=== PATIENT | female | born 1970 | race Caucasian/White ===

== ENCOUNTER 2022-10-11 07:29 | Day surgery (SDC) | payer OTHER, MEDICAID, SELFPAY ==
[2022-10-11] MEDS: LACTATED RINGERS 1000 ML 1,000 ML 100 ML IV ×2 (07:30→09:58)
[2022-10-11 07:48] VITALS: BMI 25.4
[2022-10-11 07:54] LABS: Hemoglobin* 14.1 gm/dL (12.0-16.0)
[2022-10-11 07:55] LABS: Ur HCG Qualitative* Negative (Negative)
[2022-10-11 07:58] VITALS: BP 148/95; PULSE 95; RESP 16; TEMP 36.7; O2SAT 98
--- NOTE | 2022-10-11 08:42 | W.ANESCHARGE ---
Anesthesia Charges Start Date/Time Anesthesia Start Date: 10/11/22 Anesthesia Start Time: 09:08 Stop Date/Time Anesthesia Stop Date: 10/11/22 Anesthesia Stop Time: 10:15
[2022-10-11] MEDS: SILVER NITRATE APPLICATOR 1 EACH STICK..EA. TOPICAL (10:00)
[2022-10-11 10:15] VITALS: BP 106/70; PULSE 84; RESP 16; TEMP 36.3; O2SAT 99
--- NOTE | 2022-10-11 10:18 | W.ANESCHARGE ---
Anesthesia Charges Start Date/Time Anesthesia Start Date: 10/11/22 Anesthesia Start Time: 09:08 Stop Date/Time Anesthesia Stop Date: 10/11/22 Anesthesia Stop Time: 10:15
[2022-10-11 10:29] VITALS: BP 117/72; PULSE 77; RESP 16; O2SAT 99
--- NOTE | 2022-10-11 10:32 | PM.GYNPRHA ---
Procedure Pre-op/Post-op diagnoses: Pre-Op/Post-Op Diagnoses Operation Date: 10/11/22 08:55 <No data on this case meets the specified criteria> Procedure: Procedures Operation Date: 10/11/22 08:55 Actual Procedure Side Surgeon p Hysteroscopy, Endometrial Ablation Not Applicable Sarah Garner MD Anesthesia type: MAC Specimen: endometrial curettings Complications: none Disposition: PACU Narrative: Preoperative diagnosis: Mary is a 52 yo with abnormal uterine bleeding - menorrhagia. Postoperative diagnosis: Same. Procedure: Hysteroscopy, dilation and curettage, endometrial ablation. Anesthesia: Mac and paracervical block. Surgeon: Sarah Garner MD Assist: None Estimated blood loss: <5 mL Specimen: Endometrial curettings, sent to path. UPT: negative Endometrial biopsy: Minute fragments of benign endometrial polyp(s), late proliferative/early secretory endometrium. Negative for atypia and malignancy. Findings: On exam under anesthesia: The cervix and vagina appear normal. Vaginal biopsy site at right labia minora is well healed. Improvement in lichen sclerosis already noted. The uterus was anterior position, approximately 6 week size, mobile and without masses or nodularity palpable. Adnexa were without mass or fullness palpable bilaterally. On hysteroscopy: normal endometrium and uterine contour. Bilateral ostia visualized and symmetrical. Despite endometrial biopsy report of possible polyp(s), there was not obvious polyp visualized on hysteroscopy. No other abnormalities noted. The uterus sounded to 8 cm. Cervical length 4 cm. Cavity length: 4 cm. Procedure: Mary was taken to the operating room where conscious sedation was found to be adequate. She was placed in a dorsal lithotomy position and an exam under anesthesia was performed with the findings stated above. She was then prepped and draped in a normal sterile manner. An a bivalve is sterile speculum was placed in the vaginal canal. A paracervical block was placed using 1% lidocaine with epinephrine: 5 mL were injected at the 4 and 8 o'clock positions on the cervix. A tenaculum was placed on the anterior lip of the cervix. The cervix was then dilated to Hegar 6. Uterus sounded to 8 cm. The cervix measured 4 cm. There for the cavity length was 4 cm. The Truclear hysteroscope was advanced into the uterus. A diagnostic hysteroscopy performed with normal saline as the insufflation medium. Findings are stated above. The Truclear incisor was then advanced into the camera. And the curettage performed with this incisor. The curettage took approximately 1 min. The cavity appeared normal once the curettage was performed completed. The hysteroscope was removed. The cervix was then dilated to Hegar 8. The Shirin device was advanced into the uterus. The cavity check was completed and the ablation took place over 2 min. Patient received 30 mg of Toradol IV. The Shirin was removed, the hysteroscope readvanced to document ablation of the entire cavity. The hysteroscope was then removed. The tenaculum was removed from the anterior lip of the cervix. Silver nitrate was used to obtain hemostasis. The speculum was removed. The patient tolerated this procedure well. Sponge, lap and instrument counts were correct x2 at the end of the procedure and the patient was taken to the recovery area in stable condition.
[2022-10-11 10:44] VITALS: BP 119/70; PULSE 72; RESP 16; O2SAT 100
== END 2022-10-11 11:06 | disposition home or self-care (01) ==
PROVIDERS: PCP Physician Assistant Medical; Visit Provider Obstetrics & Gynecology
PROC: 0UF98ZZ Fragmentation in Uterus, Via Natural or Artificial Opening Endoscopic (ICD-10-PCS; CPT 58563; principal; 2022-10-11 08:45)
DX: N92.0 Excessive and frequent menstruation with regular cycle (principal); N84.0 Polyp of corpus uteri
CPT/HCPCS: 58563; 00952; 36415; 81025; 85018; 88305; A9270; J1100; J1885; J2250; J2405; J2704; J3010; J7120

== ENCOUNTER 2024-01-03 07:51 | Outpatient (CLI) | payer BC, MEDICAID, SELFPAY ==
--- OUTSIDE RECORDS SUMMARY | 2024-01-03 07:55 | XMS_ITS | Clinical Summary ---
Author Organization [employer] [facility] Address [place], [place] [address] Care Team Providers Care Roller Checker Name Role Phone Cata Cadena Primary Care Provider Allergies No known active allergies Medications Medication Sig Dispensed Refills Start Date End Date Status multivitamin (MVI) tablet Take 1 Tablet by mouth once daily. 0 12/24/2022 Active lisinopriL (PRINIVIL; ZESTRIL) 30 mg tabletIndications :HTN (hypertension) Take 1 Tablet (30 mg) by mouth once daily. 90 Tablet 3 01/01/2024 Active lisinopriL (PRINIVIL; ZESTRIL) 30 mg tabletIndications :HTN (hypertension) Take 1 Tablet (30 mg) by mouth once daily. 90 Tablet 3 12/24/2022 4 Discontinue d(Reorder (E-cancel not sent)) polyethylene glycol-electrolyt e (GOLYTELY) 236-22.74-6.74 -5.86 gram suspensionIndicat ions:Encounter for screening colonoscopy Drink 2 liters (half the bottle) the day before colonoscopy and 2 liters (remaining prep) 6 hours prior to colonoscopy appointment. 4000 mL 10/01/2023 4 Discontinue d(*Patient states no longer taking) lisinopriL (PRINIVIL; ZESTRIL) 30 mg tabletIndications :HTN (hypertension) Take 1 Tablet (30 mg) by mouth once daily. 90 Tablet 12/16/2023 4 Discontinue d(Reorder (E-cancel not sent)) Hospital, Clinic, or Other Facility Administered Medication Ordered Dose Route Frequency Start Date End Date Status fentaNYL (PF) (SUBLIMAZE) 50 mcg/mL injection 200 mcgIndications:History of colon polyps 200 mcg IV ONE TIME 12/17/2023 12/17/2023 Ended midazolam (VERSED) injection 4 mgIndications:History of colon polyps 4 mg IV ONE TIME 12/17/2023 12/17/2023 Ended Active Problems Problem Noted Date Diagnosed Date Adenocarcinoma, colon 12/19/2023 Overview: Colonoscopy 12/2023 rectosigmoid tumor, refer to surgery Adenomatous colon polyp 11/11/2020 Overview: Colonoscopy 10/2020 5 polyps, repeat in 3 years 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/13/2016 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 Osteoarthritis of left hip 07/26/2014 Resolved Problems Problem Noted Date Diagnosed Date Resolved Date Left hip pain 07/23/2014 07/26/2014 Trochanteric bursitis of left hip 07/23/2014 05/11/2016 Encounters Date Type Department Care Team Description 01/02/2024 8:15 AM CDT Ancillary Procedure [facility] [address] [place] [address] Arrived 01/02/2024 Travel 01/01/2024 7:50 AM CDT Office Visit [address] [address] Cata Cadena PA Physical (53 years old) 12/31/2023 1:30 PM CDT Office Visit [facility] [address] [place] [address] Gris Squires MD Consult (Malignant neoplasm of colon referred by Dr. Mena) 12/31/2023 Travel 12/27/2023 9:20 AM CDT Ancillary Procedure [facility] [address] [place] [address] 12/26/2023 7:30 AM CDT Ancillary Procedure [facility] [address] [place] [address] 12/26/2023 Travel 12/20/2023 8:30 AM CDT Orders Only [address] [place] [address] Lab, [facility] 12/20/2023 Travel 12/19/2023 Telephone [facility] [address] [place] [address] Donavon Mena MD Results 12/17/2023 10:30 AM CDT Office Visit [facility] [address] [place] [address] Donavon Mena MD Procedure (Colonoscopy) 12/17/2023 Travel 12/11/2023 Telephone [facility] [address] [facility] [address] Donavon Mena MD Appointment Reminder (Colonoscopy 12/17/23) from Last 3 Months Immunizations Name Administration Dates Next Due COVID-19 vaccine (State 30mcg/0.3mL) P F, MDV 08/27/2020,08/06/2020 Influenza, IIV4 05/16/2020 Influenza,CCIIV4 PRESERV FREE 05/05/2022 Td (Age >=7 Years) 01/20/2003,07/04/1995 Tdap 08/10/2016,11/18/2012 Zoster (Shingrix-RZV, recombinant) 10/06/2022, Family History Medical History Relation Name Comments Esophageal cancer Father Heart attack Father Hyperlipidemia Father htn Hypertension Father Heart Disease Maternal Grandfather deceas ed in 50s from [place] Thyroid Disease Maternal Grandmother Hypertension Mother Cancer-colon Paternal Grandmother diagnos ed in 40s or 50s Cancer-breast No Family History Relation Name Status Comments Father Maternal Grandfather Maternal Grandmother Mother Alive Paternal Grandmother (Age 108) Social History Tobacco Use Types Packs/Day Years Used Date Smoking Tobacco: Never Smokeless Tobacco: Never Tobacco Cessation:Counseling Given: Yes Alcohol Use Standard Drinks/Week Comments Yes 0 (1 standard drink = 0.6 oz pur e alcohol) moderation PHQ-2 Answer Date Recorded PHQ-2 TOTAL SCORE 0 10/19/2020 Social Connections Answer Date Recorded Frequency of Communication with Friends and Fami ly 0 01/01/2024 Financial Resource Strain Answer Date R ecorded Difficulty of Paying Living Expenses 3 01/01/2024 Difficulty of Paying Living Expenses Not on file 01/01/2024 Food Insecurity Answer Date Recorded Worried About Running Out of Food in the Last Ye ar 1 01/01/2024 Transportation Needs Answer Date Record ed Lack of Transportation (Medical) 1 01/01/2024 Housing Stability Answer Date Recorded Unable to Pay for Housing in the Last Year 1 01/01/2024 Sex and Gender Information Value Date Recorded Sex Assigned at Not on file Gender Identity Not on file Sexual Orientation Not on file Obstetrics History Last Filed Vital Signs Vital Sign Reading Time Taken Comments Blood Pressure 134/84 01/01/2024 8:49 AM CDT Pulse 82 01/01/2024 7:57 AM CDT Temperature 37.6 ??C (99.6 ??F) 05/16/2021 8:33 AM CD T Respiratory Rate 14 12/17/2023 12:05 PM CDT Oxygen Saturation 100% 12/31/2023 1:28 PM CDT Inhaled Oxygen Concentration - - Weight 72.6 kg (160 lb) 01/01/2024 7:57 AM CDT Height 173 cm (5' 8.11) 01/01/2024 7:57 AM CDT Body Mass Index 24.25 01/01/2024 7:57 AM CDT Plan of Treatment Health Maintenance Due Date Last Done Comments Pneumococcal series for age 6-64 (1 of 2 - PCV) 1974 HIV for age 15-65 1983 Hepatitis C screening for ag e 18-79 1986 Depression screening for age 12+ 10/19/2021 10/20/19 21 COVID-19 vaccine series (2022- season) 2023 05/05/2022, 10/28/2021, 04/08/2021, Additional history exists Influenza for age 50-64 03/15/2024 05/05/2022, 05/16 Colonoscopy through age 75 12/16/202412/16, 12/17/2023, 12/17/2023, Additional history exists Mammogram for age 45-75 12/26/2024 12/27/19 24, 12/24/2022, 12/19/2021, Additional history exists BMI (ht and wt on same day) for age 18+ 12/31/2024 01/01/2024, 12/24/2022, 10/05/2022, Additional history exists Pap test for age 21-65 10/19/2025 , 10/19/2020, 04/15/2009, Additional history exists Tetanus booster 08/10/2026 08/10/2016, 05/0 01/2013, 01/20/2003, Additional history exists Lipids for age 45-75 12/19/2028 12/20/2023, 12/24/2022, 12/19/2021, Additional history exists Tdap Completed 08/10/2016, 11/18/2012 Zoster (shingles) series for age 50+ Completed 10/06/2022, 06/03/2022 Procedures Procedure Name Priority Date/Time Associated Diagnosis Comments MR PELVIS RECTUM WWO SUNDEEP 01/02/2024 10:16 AM CDT Rectal cancer (HC) XR MAMMO BILAT SCREENING Routine 12/27/2023 9:26 AM CDT Visit for screening mammogram CT CHEST ABDOMEN PELVIS W Routine 12/26/2023 8:09 AM CDT Malignant neoplasm of colon, unspecified part of colon (HC) BASIC METABOLIC PANEL Add On 12/20/2023 8:31 AM CDT HTN (hypertension) LIPID PANEL W REFLEX MEASURED LDL Add On 12/20/2023 8:31 AM CDT Screening cholesterol level CBC WITH AUTO DIFFERENTIAL Routine 12/20/2023 8:31 AM CDT Malignant neoplasm of colon, unspecified part of colon (HC) CEA Routine 12/20/2023 8:31 AM CDT Malignant neoplasm of colon, unspecified part of colon (HC) CBC WITH AUTO DIFFERENTIAL Routine 12/20/2023 8:31 AM CDT Malignant neoplasm of colon, unspecified part of colon (HC) COMP METABOLIC PANEL Routine 12/20/2023 8:31 AM CDT Malignant neoplasm of colon, unspecified part of colon (HC) PATH TISSUE EXAM Routine 12/17/2023 11:2 3 AM CDT History of colon polyps Polyp of colon, unspecified part of colon, unspecified type COLONOSCOPY 12/17/2023 10:30 AM CDT COLONOSCOPY SCREENING Routine 12/17/2023 10:26 AM CDT History of colon polyps SH[employer]ER [employer] T[employer]ER THIN PREP PAP SCREEN IMAGED Routine 10/19/2020 8:55 AM CDT Pap smear for cervical cancer screening from Last 3 Months or Most Recently Relevant to Health Maintenance Results * MR PELVIS RECTUM WWO (01/02/2024 10:16 AM CDT) Anatomical Region Laterality Modality Pelvis Magnetic Resonan ce 01/02/2024 11:4 6 AM CDT Narrative 01/02/2024 11:46 AM CDT For Patients: ??As a result of the Cures Act, medical imaging exams and procedure reports are released immediately into your electronic medical record. ??You may view this report before your referring provider. ??If you have questions, please contact your health care provider. INDICATION: Rectal cancer. TECHNIQUE: Rectal MRI with T1, T2, and postcontrast images. Intravenous gadolinium administered. COMPARISON: CT scan of the chest, abdomen, and pelvis dated 26 December 2023. Findings : No discrete rectal mass identified. No mesorectal adenopathy. No pelvic masses or adenopathy. Bilateral hip arthroplasties cause metallic susceptibility artifact. No other bony or soft tissue abnormalities identified. Impression : 1. No discrete rectal mass identified. No mesorectal adenopathy. Dictated by Ryan Arnold MD @ 01/02/2024 11:46:21 AM (Electronically Signed) Procedure Note Ryan Arnold MD - 01/02/2024 For Patients: As a result of the Cures Act, medical imagingexams and procedure reports are released immediately into your electronicmedical record. You may view this report before your referring provider.If you have questions, please contact your health care provider. INDICATION: Rectal cancer. TECHNIQUE: Rectal MRI with T1, T2, and postcontrast images. Intravenous gadoliniumadministered. COMPARISON: CT scan of the chest, abdomen, and pelvis dated 26 December 2023. Findings : No discrete rectal mass identified. No mesorectal adenopathy. No pelvic masses or adenopathy. Bilateral hip arthroplasties cause metallic susceptibility artifact. No other bony or soft tissue abnormalities identified. Impression : 1. No discrete rectal mass identified. No mesorectal adenopathy. Dictated by Ryan Arnold MD @ 01/02/2024 11:46:21 AM (Electronically Signed) Gris Squires MD MR * XR MAMMO BILAT SCREENING (12/27/2023 9:26 AM CDT) Anatomical Region Laterality Modality BREASTS, Breast Left, Breast Right Bilateral Mammography Impressions 12/27/2023 11:12 AM CDT ??There is no radiographic evidence for malignancy. ??Recommend annual mammograms. MAMMOGRAM ASSESSMENT: ??ACR 1 Negative PATIENTS: You will also receive a letter with your examination results in an easy to read format. ??If you have questions about your results, please contact your referring provider. Narrative 12/27/2023 11:12 AM CDT For Patients: As a result of the 21st Century Cures Act, medical imaging exams and procedure reports are released immediately into your electronic medical record. You may view this report before your referring provider. If you have questions, please contact your health care provider. XR MAMMO BILAT SCREENING [[id number]] CLINICAL HISTORY: ??This is an asymptomatic 53 y.o. patient. INDICATION FOR EXAM: Mammogram Screening. TECHNIQUE: CC & MLO views were obtained. ??This study was evaluated with the assistance of Computer-Aided Detection. COMPARISON FILM: Yes 12/24/22 Synapse 12/19/21 Synapse FINDINGS: ??There are scattered areas of fibroglandular density. There are no dominant masses, suspicious micro calcifications or areas of architectural distortion. Cata FISHMAN MAMMO * CT CHEST ABDOMEN PELVIS W (12/26/2023 8:09 AM CDT) Anatomical Region Laterality Modality Abdomen, Pelvis, AORTA, LIVER, SPLEEN, CHEST Computed Tomography 12/27/2023 12:3 6 PM CDT Narrative 12/27/2023 12:36 PM CDT For Patients: ??As a result of the Cures Act, medical imaging exams and procedure reports are released immediately into your electronic medical record. ??You may view this report before your referring provider. ??If you have questions, please contact your health care provider. Indication: Malignant neoplasm of colon Technique: CT chest/abdomen/pelvis with IV contrast, 100 mL Omnipaque 350 Comparison: None Findings: Chest: No thyroid nodules. No pathologically enlarged lymph nodes throughout the thorax. The heart is normal in size. No pericardial effusion. No coronary artery calcifications. The thoracic aorta and pulmonary artery are within normal limits in caliber. No appreciable pulmonary embolism. Minimal biapical pleural/parenchymal scarring. No focal airspace consolidation, pleural effusion, or pneumothorax. No suspicious pulmonary nodules or masses. Small calcified granuloma in the left lower lobe. The airways are clear. Abdomen/pelvis: The liver, gallbladder and biliary system, spleen, pancreas, adrenal glands, kidneys, and visualized portions of the distal ureters and bladder are unremarkable. There is a tiny splenule along the inferior margin of the spleen. Beam hardening artifact from bilateral total hip arthroplasties limits evaluation of the pelvis. The uterus appears within normal limits. There is a well- circumscribed fat and soft tissue density lesion in the left adnexa, in close proximity to the left ovary, that measures approximately 4.4 Centimeters AP by 3.9 centimeters transverse by 3.7 centimeters craniocaudal. The ovaries appear within normal limits with some benign calcifications. There is no evidence of bowel obstruction or inflammation. The appendix is normal. Scattered colonic diverticula without CT evidence of acute diverticulitis. No clearly identifiable colonic mass. There is some questionable wall thickening seen in the distal sigmoid colon, indeterminate No free fluid or free air. No abscess. No pathologically enlarged lymph nodes throughout the abdomen or pelvis. The vasculature is within normal limits. There are multiple pelvic phleboliths. Soft tissue/musculoskeletal: Small fat containing umbilical hernia. The osseous structures are without acute fracture or malalignment. There are some degenerative changes of the visualized cervical spine and lower lumbar spine. There are no suspicious osseous lesions. Postsurgical changes of bilateral total hip arthroplasties. Impression: 1. No definitive CT evidence of a colonic mass or lesion on this exam. 2. There are no pathologically enlarged lymph nodes throughout the chest, abdomen, or pelvis to suggest metastatic disease. 3. There is a well-circumscribed fat and soft tissue density lesion seen in the left adnexa measuring 4.4 x 3.9 x 3.7 centimeters with imaging findings suggestive of an ovarian dermoid tumor, to correlate with prior imaging if available. Please note that all CT scans at this facility use dose modulation, iterative reconstruction, and/or weight-based dosing when appropriate to reduce radiation dose to as low as reasonably achievable. Dictated by Bishnu Valerio MD @ 12/27/2023 12:36:50 PM (Electronically Signed) Procedure Note Bishnu Valerio MD - 12/27/2023 For Patients: As a result of the Cures Act, medical imagingexams and procedure reports are released immediately into your electronicmedical record. You may view this report before your referring provider.If you have questions, please contact your health care provider. Indication: Malignant neoplasm of colon Technique: CT chest/abdomen/pelvis with IV contrast, 100 mL Omnipaque 350 Comparison: None Findings: Chest: No thyroid nodules. No pathologically enlarged lymph nodes throughout the thorax. The heart is normal in size. No pericardial effusion. No coronary arterycalcifications. The thoracic aorta and pulmonary artery are within normallimits in caliber. No appreciable pulmonary embolism. Minimal biapical pleural/parenchymal scarring. No focal airspaceconsolidation, pleural effusion, or pneumothorax. No suspicious pulmonarynodules or masses. Small calcified granuloma in the left lower lobe. Theairways are clear. Abdomen/pelvis: The liver, gallbladder and biliary system, spleen, pancreas, adrenalglands, kidneys, and visualized portions of the distal ureters and bladderare unremarkable. There is a tiny splenule along the inferior margin ofthe spleen. Beam hardening artifact from bilateral total hip arthroplasties limitsevaluation of the pelvis. The uterus appears within normal limits. Thereis a well- circumscribed fat and soft tissue density lesion in the leftadnexa, in close proximity to the left ovary, that measures approximately4.4 Centimeters AP by 3.9 centimeters transverse by 3.7 centimeterscraniocaudal. The ovaries appear within normal limits with some benigncalcifications. There is no evidence of bowel obstruction or inflammation. The appendix isnormal. Scattered colonic diverticula without CT evidence of acutediverticulitis. No clearly identifiable colonic mass. There is somequestionable wall thickening seen in the distal sigmoid colon,indeterminate No free fluid or free air. No abscess. No pathologically enlarged lymphnodes throughout the abdomen or pelvis. The vasculature is within normal limits. There are multiple pelvicphleboliths. Soft tissue/musculoskeletal: Small fat containing umbilical hernia. The osseous structures are withoutacute fracture or malalignment. There are some degenerative changes of thevisualized cervical spine and lower lumbar spine. There are no suspiciousosseous lesions. Postsurgical changes of bilateral total hiparthroplasties. Impression: 1. No definitive CT evidence of a colonic mass or lesion on this exam. 2. There are no pathologically enlarged lymph nodes throughout the chest,abdomen, or pelvis to suggest metastatic disease. 3. There is a well-circumscribed fat and soft tissue density lesion seenin the left adnexa measuring 4.4 x 3.9 x 3.7 centimeters with imagingfindings suggestive of an ovarian dermoid tumor, to correlate with priorimaging if available. Please note that all CT scans at this facility use dose modulation,iterative reconstruction, and/or weight-based dosing when appropriate toreduce radiation dose to as low as reasonably achievable. Dictated by Bishnu Valerio MD @ 12/27/2023 12:36:50 PM (Electronically Signed) Donavon Mena MD CT * (ABNORMAL) CBC WITH AUTO DIFFERENTIAL (12/20/2023 8:31 AM CDT) WHITE BLOOD COUNT 5.1 4.5 - 11.0 thou/cu mm 12/20/2023 8:41 AM CDT [facility] RED BLOOD COUNT 4.28 4.00 - 5.20 mil/cu mm 12/20/2023 8:41 AM CDT [facility] HEMOGLOBIN 13.6 12.0 - 16.0 g/dL 12/20/2023 8:41 AM CDT [facility] HEMATOCRIT 39.5 33.0 - 51.0 % 12/20/2023 8:41 AM CDT [facility] MCV 92 80 - 100 fL 12/20/2023 8:41 AM CDT [facility] MCH 31.8 26.0 - 34.0 pg 12/20/2023 8:41 AM CDT [facility] MCHC 34.4 32.0 - 36.0 g/dL 12/20/2023 8:41 AM CDT [facility] RDW 13.2 11.5 - 15.5 % 12/20/2023 8:41 AM CDT [facility] PLATELET COUNT 296 140 - 440 thou/cu mm 12/20/2023 8:41 AM CDT [facility] MPV 9.0 6.5 - 11.0 fL 12/20/2023 8:41 AM CDT [facility] % NEUT 32.1 % 12/20/2023 8:41 AM CDT [facility] % LYMPH 55.8 % 12/20/2023 8:41 AM CDT [facility] % MONO 8.8 % 12/20/2023 8:41 AM CDT [facility] % EOS 2.7 % 12/20/2023 8:41 AM CDT [facility] % BASO 0.6 % 12/20/2023 8:41 AM CDT [facility] ABSOLUTE NEUTROPHILS 1.6(L) 1.7 - 7.0 thou/cu mm 12/20/2023 8:41 AM CDT [facility] ABSOLUTE LYMPHOCYTES 2.9 0.9 - 2.9 thou/cu mm 12/20/2023 8:41 AM CDT [facility] ABSOLUTE MONOCYTES 0.5 <0.9 thou/cu mm 12/20/2023 8:41 AM CDT [facility] ABSOLUTE EOSINOPHILS 0.1 <0.5 thou/cu mm 12/20/2023 8:41 AM CDT [facility] ABSOLUTE BASOPHILS 0.0 <0.3 thou/cu mm 12/20/2023 8:41 AM CDT [facility] Blood BLOOD SPECIMEN / Unknown Venipuncture / Unknown 12/20/2023 8:31 AM CDT 12/20/2023 8:31 AM CDT Donavon Mena MD HEMATOLOGY [facility] [address] [place] [address], [place] [phone] * (ABNORMAL) LIPID PANEL W REFLEX MEASURED LDL (12/20/2023 8:31 AM CDT) CHOLESTEROL,TOTAL 218(H) 100 - 199 mg/dL 12/23/2023 8:17 AM CDT [facility] Comment: Cholesterol, Total Reference Ranges Desirable <200 mg/dL Borderline 200-239 mg/dL High >=240 mg/dL TRIGLYCERIDES 81 <150 mg/dL 12/23/2023 8:17 AM CDT [facility] HDL CHOLESTEROL 68 >40 mg/dL 8:17 AM CDT [facility] NON-HDL CHOLESTEROL 150(H) <145 mg/dl 12/23/2023 8:17 AM CDT [facility] CHOL/HDL RATIO 3.21 <4.50 12/23/2023 8:17 AM CDT [facility] LDL CHOLESTEROL 134(H) <=130 mg/dL 12/23/2023 8:17 AM CDT [facility] VLDL CHOLESTEROL 16 <=30 mg/dL 12/23/2023 8:17 AM CDT [facility] PROVIDER ORDERED STATUS RANDOM 12/23/2023 8:17 AM CDT [facility] Blood BLOOD SPECIMEN / Unknown Venipuncture / Unknown 12/20/2023 8:31 AM CDT 12/20/2023 8:31 AM CDT [facility] [address] [place] [address] * CEA (12/20/2023 8:31 AM CDT) CEA 3.2 ng/mL 12/20/2023 7:43 PM CDT [facility] Blood BLOOD SPECIMEN / Unknown Venipuncture / Unknown 12/20/2023 8:31 AM CDT 12/20/2023 8:31 AM CDT Narrative [facility] - 12/20/2023 7:43 PM CDT ?CEA Ranges Age Range ? Reference Range 20 years up to 70 years (all subjects) ?<4.8 ng/mL 40 years up to 70 years (all subjects) ?<5.3 ng/mL 20 years up to 70 years (non smoker) ?<3.9 ng/mL 40 years up to 70 years (non smoker) ?<5.1 ng/mL 20 years up to 70 years (smoker) ?<5.6 ng/mL 40 years up to 70 years (smoker) ?<6.6 ng/mL The test method changed on 07/17/2022. If this test has been used for serial monitoring, rebaselining is recommended. Rebaselining consists of 2 measurements, collected 3-6 weeks apart. The [employer] CEA assay is an electrochemiluminescence immunoassay ECLIA performed on the [employer] [place] e immunoassy analyzers. ?? Values obtained with different assay methods may be different and cannot be used interchangeably. ? Biotin supplements may cause clinically significant interference for this test assay. If interference is suspected, it is strongly recomended that biotin is discontinued for at least one week prior to retesting. Donavon Mena MD [facility]Y [facility] [address] [place] [address], [place] * COMP METABOLIC PANEL (12/20/2023 8:31 AM CDT) SODIUM 138 136 - 145 mmol/L 12/20/2023 7:43 PM CDT [facility] POTASSIUM 4.3 3.5 - 5.1 mmol/L 12/20/2023 7:43 PM CDT [facility] CHLORIDE 101 98 - 107 mmol/L 12/20/2023 7:43 PM CDT [facility] CO2,TOTAL 26 22 - 29 mmol/L 12/20/2023 7:43 PM CDT [facility] ANION GAP 11 5 - 18 12/20/2023 7:43 PM CDT [facility] GLUCOSE 86 70 - 99 mg/dL 12/20/2023 7:43 PM CDT [facility] CALCIUM 9.9 8.6 - 10.0 mg/dL 12/20/2023 7:43 PM CDT [facility] BUN 7 6 - 20 mg/dL 12/20/2023 7:43 PM T [facility] CREATININE 0.53 0.50 - 0.90 mg/dL 12/20/2023 7:43 PM T [facility] BUN/CREAT RATIO 13 10 - 20 7:43 PM CDT [facility] eGFR >90 >90 mL/min/1.7 3m2 12/20/2023 7:43 PM CDT [facility] Comment:As of 2021, eG FR is calculated by the CKD-EPI creatinine equation without race adjustment. ??eGFR can be influenced by muscle mass, exercise, and diet. ??The reported eGFR is an estimation only and is only applicable if the renal function is stable. ALBUMIN 4.8 4.0 - 4.9 g/dL 12/20/2023 7:43 PM CDT [facility] PROTEIN,TOTAL 7.6 6.0 - 8.0 g/dL 12/20/2023 7:43 PM CDT [facility] BILIRUBIN,TOTAL 0.2 0.0 - 1.2 mg/dL 12/20/2023 7:43 PM CDT [facility] ALK PHOSPHATASE 77 35 - 104 IU/L 12/20/2023 7:43 PM CDT [facility] ALT (SGPT) 30 10 - 35 IU/L 12/20/2023 7:43 PM CDT [facility] AST (SGOT) 33 10 - 35 IU/L 12/20/2023 7:43 PM T [facility] Blood BLOOD SPECIMEN / Unknown Venipuncture / Unknown 12/20/2023 8:31 AM CDT 12/20/2023 8:31 AM CDT Donavon Mena MD CHEMISTRY [facility] [address] [place] [address], * BASIC METABOLIC PANEL (12/20/2023 8:31 AM CDT) SODIUM 138 136 - 145 mmol/L 12/23/2023 7:33 AM CDT [facility] POTASSIUM 4.3 3.5 - 5.1 mmol/L 12/23/2023 7:33 AM CDT [facility] CHLORIDE 101 98 - 107 mmol/L 12/23/2023 7:33 AM CDT [facility] CO2,TOTAL 26 22 - 29 mmol/L 12/23/2023 7:33 AM CDT [facility] ANION GAP 11 5 - 18 12/23/2023 7:33 AM CDT [facility] GLUCOSE 86 70 - 99 mg/dL 12/23/2023 7:33 AM CDT [facility] CALCIUM 9.9 8.6 - 10.0 mg/dL 12/23/2023 7:33 AM CDT [facility] BUN 7 6 - 20 mg/dL 12/23/2023 7:33 AM CDT [facility] CREATININE 0.53 0.50 - 0.90 mg/dL 12/23/2023 7:33 AM CDT [facility] BUN/CREAT RATIO 13 10 - 20 7:33 AM CDT [facility] eGFR >90 >90 mL/min/1.7 3m2 12/23/2023 7:33 AM CDT [facility] Comment: As of 2021, eGFR is calculated by the CKD-EPI creatinine equation without race adjustment. ??eGFR can be influenced by muscle mass, exercise, and diet. ??The reported eGFR is an estimation only and is only applicable if the renal function is stable. As of 09/26/2021, eGFR is calculated by the CKD-EPI creatinine equation without race adjustment. ??eGFR can be influenced by muscle mass, exercise, and diet. ??The reported eGFR is an estimation only and is only applicable if the renal function is stable. Blood BLOOD SPECIMEN / Unknown Venipuncture / Unknown 12/20/2023 8:31 AM CDT 12/20/2023 8:31 AM CDT Cata FISHMAN CHEMISTRY [facility] [address] [place] [address], * PATH TISSUE EXAM (12/17/2023 11:23 AM CDT) Case Report Pathology Report ?Case: [id number] ? Authorizing Provider: ??Trina, Donavon Herron, MD ?? Collected: ? 12/17/2023 1123 ? Ordering Location: ? [facility] ?? Received: ?12/17/2023 1550 ? Clinic ? Pathologist: ? Juwan, Norberto Duque, ? MD ? Specimens: ?? A) - Ascending Colon Polyp ? B) - Sigmoid Polyp, @35 cm ? C) - Sigmoid Polyp, @20 cm ? D) - Rectal-Sigmoid Biopsy, mass ? 4 2:35 PM CDT [facility] Amendment 12/19/2023 - DNA mismatch repair enzyme IHC added, see final diagnosis and synoptic sections. 4 2:35 PM CDT [facility] Final Diagnosis A) COLON, ASCENDING, POLYPECTOMY: 1. Tubular adenoma 2. Negative for high grade dysplasia 3. Per the colonoscopy report: ?? a. Polyp size: 3 mm ?? b. Resection: Complete ?? c. Retrieval: Complete B) COLON, SIGMOID AT 35 CM, POLYPECTOMIES: 1. Tubular adenomas (2) 2. Negative for high grade dysplasia 3. Per the colonoscopy report: ?? a. Polyp sizes: 3 mm - 4 mm ?? b. Resection: Complete ?? c. Retrieval: Complete C) COLON, SIGMOID AT 20 CM, POLYPECTOMY: 1. Tubular adenoma 2. Negative for high grade dysplasia 3. Per the colonoscopy report: ?? a. Polyp size: 4 mm ?? b. Resection: Complete ?? c. Retrieval: Complete D) COLON, RECTOSIGMOID, MASS, BIOPSY: 1. Adenocarcinoma, low grade (moderately differentiated) 2. Background adenoma is not present 3. Please order CEA level and CT imaging (chest/abdomen/pelvis) prior to treatment 4. Ancillary studies: ?? a. DNA mismatch repair enzymes intact by immunohistochemistry ?? b. See comment and synoptic sections 4 2:35 PM CDT [facility] Amendment electronically signed by Norberto Echeverria MD on 12/19/2023 at 2:35 PM Comment D) Dr. Echeverria discussed the case with Dr. Mena on 12/19/2023. This case was seen in consultation with Dr. Ashley. Please contact us with any questions ([facility] GI pathology service [phone]). Formalin-fixed, paraffin-embedded tissue is available for ancillary studies, to request please contact the [facility] ([phone]). Neoplastic tissue available for ancillary studies: ?? [facility] NGS testing: ?- FFPE tissue blocks: D1 ?- Cytology slides: No cytology slides prepared from this specimen ?? Tests using immunostains and/or FISH (requiring 100 cells): D1 ?? Send out (outside vendor) testing requiring 5 x 5 mm of tumor: D1 Ancillary Testing Comment Immunohistochemistry reveals intact nuclear staining for DNA mismatch repair enzymes MLH1, MSH2, MSH6 and PMS2. These results fail to show evidence for defective mismatch repair function or Peguero Syndrome and are approximately 85-90% sensitive for Peguero syndrome. Cancers with this profile are usually microsatellite stable (YUSUF). If Peguero syndrome is strongly suspected clinically please contact us ([facility] GI Pathology Service [phone]). Rarely there can be a functionally significant mutation that leaves the protein intact or other heritable reasons for this finding. 4 2:35 PM T [facility] Clinical Information Ms. Gaytan is a 53 y.o. undergoing high risk colon cancer surveillance due to a personal history of adenomas. Colonoscopy reveals a partially obstructing tumor in the rectosigmoid colon. Additional polyps were identified in the ascending and sigmoid colon. 4 2:35 PM CDT [facility] Gross Description A) Received in formalin are 2 brownlee mucosal fragments ranging from 1 mm to 2 mm in greatest dimension, which are entirely submitted in one cassette. It is labeled with the patient's name and designated A. B) Received in formalin are 3 brownlee mucosal fragments ranging from 2 mm to 7 mm in greatest dimension, which are entirely submitted in one cassette. It is labeled with the patient's name and designated B. C) Received in formalin are 2 brownlee mucosal fragments ranging from 3 mm to 4 mm in greatest dimension, which are entirely submitted in one cassette. It is labeled with the patient's name and designated C. D) Received in formalin are 8 brownlee mucosal fragments ranging from 1 mm to 3 mm in greatest dimension, which are entirely submitted in one cassette. It is labeled with the patient's name and designated D. Renae Mata 12/18/2023 9:10 AM 4 2:35 PM CDT [facility] Microscopic Description The final diagnosis is based on microscopic examination of appropriate sections of all specimens. 4 2:35 PM CDT [facility] SYNOPTIC REPORTING Colon and Rectum Biomarker Reporting Template COLON AND RECTUM: BIOMARKER REPORTING TEMPLATE - All Specimens Protocol posted: 01/11/2021 RESULTS ?? Mismatch Repair: ? Immunohistochemistry (IHC) Testing for Mismatch Repair (MMR) Proteins: ? MLH1 Result: ?Intact nuclear expression ? Immunohistochemistry (IHC) Testing for Mismatch Repair (MMR) Proteins: ? MSH2 Result: ?Intact nuclear expression ? Immunohistochemistry (IHC) Testing for Mismatch Repair (MMR) Proteins: ? MSH6 Result: ?Intact nuclear expression ? Immunohistochemistry (IHC) Testing for Mismatch Repair (MMR) Proteins: ? PMS2 Result: ?Intact nuclear expression ? Immunohistochemistry (IHC) Testing for Mismatch Repair (MMR) Proteins: ?Background nonneoplastic tissue / internal control with intact nuclear expression ? IHC Interpretation: ?No loss of nuclear expression of MMR proteins: low probability of MSI-H 4 2:35 PM CDT [facility] Additional Information Interpreted at [facility] - [address] [facility] [address], [place] [address] 4 2:35 PM CDT [facility] Other (Ascending Colon Polyp) Non-Blood / Unknown 12/17/2023 11:23 AM CDT 12/17/2023 3:50 PM CDT Specimen (specimen) (Sigmoid Polyp) Non-Blood / Unknown 12/17/2023 11:27 AM CDT 12/17/2023 3:50 PM CDT Specimen (specimen) (Sigmoid Polyp) 12/17/2023 11:31 AM CDT 12/17/2023 3:50 PM CDT Specimen (specimen) (Rectal-Sigmoid Biopsy) 12/17/2023 11:35 AM CDT 12/17/2023 3:50 PM CDT Donavon Mena MD PATHOLOGY/CYTOLOG Y [facility] [address] [place] [address], [place] * COLONOSCOPY (12/17/2023 10:30 AM CDT) 12/17/2023 10:3 0 AM CDT Narrative Transcriptions Donavon Mena MD - 12/17/2023 11:50 AM CDT Patient Name: Mary Gaytan Procedure Date: 12/17/2023 Gender: Female Date of : 1970 Admit Type: Outpatient Procedure: Colonoscopy Proceduralist: Donavon Mena MD , Jennifer Cruz (Nurse), Joanie Crane (Nurse) Referring MD: Cata Cadena Indications/Pre-Op Diagnosis: High risk colon cancer surveillance:Personal history of multiple (3 or more) adenomas,High risk colon cancer surveillance: Personal history of adenoma less than 10 mm in size, Last colonoscopy: October 2020 Medications: Fentanyl 200 micrograms IV, Midazolam 4 mgIV Procedure Description: The patient had risks, benefits and alternatives explained to andgave informed consent. The patient had a stable cardiopulmonary status and judged an adequate candidate for conscious sedation. The endoscope PCF-H190L [id number] was passed through the anus andadvanced to the cecum, identified by appendiceal orifice and ileocecal valve.The colonoscopy was performed without difficulty. The patient toleratedthe procedure well. The quality of the bowel preparation was good. The ileocecal valve, appendiceal orifice, and rectum were photographed. Complications: No immediate complications. Estimated Blood Loss & Specimen: Estimated blood loss: none. Specimen collected - Yes and sent to Laboratory Findings: The perianal and digital rectal examinations were normal. A 3 mm polyp was found in the ascending colon. The polyp was sessile. The polyp was removed with a cold biopsy forceps. Resection and retrieval were complete. Two sessile polyps were found in the sigmoid colon. The polyps were 3to 4 mm in size. These polyps were removed with a cold snare. Resectionand retrieval were complete. A 4 mm polyp was found in the distal sigmoid colon. The polyp was semi-pedunculated. The polyp was removed with a cold snare. Resection and retrieval were complete. A polypoid partially obstructing mass was found in the recto-sigmoid colon. The mass was partially circumferential (involving one-third of the lumen circumference). The mass measured three cm in length. In addition, its diameter measured thirty mm. Biopsies were taken with a cold forceps for histology. The exam was otherwise without abnormality. Impressions/Post-Op Diagnosis: - One 3 mm polyp in the ascending colon, removed with a cold biopsy forceps. Resected and retrieved. - Two 3 to 4 mm polyps in the sigmoid colon, removed with a coldsnare. Resected and retrieved. - One 4 mm polyp in the distal sigmoid colon, removed with a coldsnare. Resected and retrieved. - Partially obstructing tumor in the recto-sigmoid colon. Biopsied. - The examination was otherwise normal. Recommendation: - Patient has a contact number available for emergencies. The signsand symptoms of potential delayed complications were discussed with the patient. Return to normal activities tomorrow. Written discharge instructions were provided to the patient. - Resume previous diet. - Continue present medications. - Await pathology results. - Repeat colonoscopy is recommended. The colonoscopy date will be determined after pathology results from today's exam become available for review. - Refer to a colo-rectal surgeon at appointment to be scheduled. Moderate Sedation: A time out was performed before the procedure. Moderate (conscious) sedation was administered by the endoscopy nurse and supervised bythe endoscopist. The following parameters were monitored: oxygensaturation, heart rate, blood pressure, EKG, CO2, respiratory rate, adequacy of pulmonary ventilation and reponse to care. Please refer to the patient's medical record flowsheets and nursing notes for moderate sedation details. Total physician intraservice time was 30 minutes. Donavon Mena MD 12/17/2023 11:50:05 AM This report has been signed electronically. Note Initiated On: 12/17/2023 10:30 AM Procedure Code(s): --- Professional --- 49683, Colonoscopy, flexible; with removalof tumor(s), polyp(s), or other lesion(s) bysnare technique 98852, 59, Colonoscopy, flexible; withbiopsy, single or multiple Diagnosis Code(s): --- Professional --- D12.2, Benign neoplasm of ascending colon D12.5, Benign neoplasm of sigmoid colon D49.0, Neoplasm of unspecified behavior of digestive system K56.690, Other partial intestinalobstruction Z86.010, Personal history of colonicpolyps CPT copyright 2022 [employer]. All rights reserved. The codes documented in this report are preliminary and upon roll shop supervisor reviewmay be revised to meet current compliance requirements. Scope In: 11:09:56 AM Scope Withdrawal Time 0 hours 18 minutes 2 seconds Scope Out: 11:37:51 AM Donavon Mena MD PROCEDURE ORD * SHADER AND TONER THIN PREP PAP SCREEN IMAGED (10/19/2020 8:55 AM CDT) Case Report Gynecologic Cytology Report ? Case: [id number] ? Authorizing Provider: ??Cata Cadena PA Collected: ? 10/19/2020 0855 ? Ordering Location: ? [facility] ?? Received: ?10/19/2020 0958 ? Clinic ? First Screen: ?Dimas Kearns ? Specimen: ?SHADER AND TONER ThinPrep Vial Screening, Cervical ? 10/31/2020 2:39 PM CDT [facility] INTERPRETATION/ RESULT NEGATIVE FOR INTRAEPITHELIAL LESION OR MALIGNANCY (NIL) (none) 10/31/2020 2:39 PM CDT [facility] IMEN ADEQUACY Satisfactory for evaluation No endocervical component seen 10/31/2020 2:39 PM CDT [facility] HPV REQUEST HPV and PAP 10/31/2020 2:39 PM CDT [facility] Date of LMP 10/07/20 10/31/2020 2:39 PM CDT [facility] Last Pap Date 2009 10/31/2020 2:39 PM CDT [facility] Last Pap Result NIL 2:39 PM CDT [facility] Abnormal Pap or [place] Bx in last 5 years No 10/31/2020 2:39 PM CDT [facility] Menstrual Status Regular Periods 10/31/2020 2:39 PM CDT [facility] [place] Bx Done Today No 10/31/2020 2:39 PM CDT [facility] Additional Information None given 10/31/2020 2:39 PM CDT [facility] Comment: Cytology is screened at [facility] - [address], [place] [address] and [facility] - [address] [place] [address] and [facility] - [address] [place] [address] Interpreted at [facility] - [address], [place] [address] Automated Review Successful 10/31/2020 2:39 PM CDT [facility] Comment:Specimen processed s uccessfully by automated maintenance tech device, ThinPrep Imaging System, [employer] ANCILLARY TESTING SHADER AND TONER HPV Ordered, Please see separate report 10/31/2020 2:39 PM CDT [facility] Note The pap test is a screening technique, not a diagnostic procedure. It is used primarily to screen for squamous cancers and precursor lesions. Published studies have shown that it is subject to both false negative and false positive results. The pap test should not be used as the sole means to diagnose or exclude pre-malignant and malignant lesions. 10/31/2020 2:39 PM CDT [facility] Other (Cervical) Non-Blood / Unknown 10/19/2020 8:55 AM CDT 10/19/2020 9:58 AM CDT Cata FISHMAN PATHOLOGY/[facility] [address] [place] [address], from Last 3 Months or Most Recently Relevant to Health Maintenance Care Teams Roller Checker Relationship Specialty Start Date End Date Cata Cadena PA [address] [place] [address] PCP - General Physician Lamp Shade Sewer 10/19/20
--- OUTSIDE RECORDS SUMMARY | 2024-01-03 07:55 | XMS_ITS ---
Author Organization [facility] Address [address] [place] [address] Care Team Providers Care Service Administrator Name Role Phone Unavailable Unavailable Unavailable Surgery Details Not on file Complications Check Surgery Details section. Procedure Estimated Blood Loss Check Surgery Details section. Procedure Findings Check Surgery Details section. Procedure Specimens Taken Check Surgery Details section.
--- OUTSIDE RECORDS SUMMARY | 2024-01-03 07:55 | XMS_ITS | Clinical Summary ---
Author Organization [facility] Address [address] [place] [address] Care Team Providers Care Qm Nurse Name Role Phone Unavailable Primary Care Provider Unavailabl e Source Comments Patient records contain information from all sites at [facility]. For routine questions regarding patient records, call [phone] during business hours, M-F 8:00 AM - 5:00 PM Central Time. Record requests for emergency care only can be directed to [phone] at any time.[facility] Allergies No known active allergies Medications Medication Sig Dispensed Refills Start Date End Date Status lisinopril (PRINIVIL,ZESTRIL) 0.625 mg tablet Take 20 mg by mouth. 04/22/2022 Active multivit with minerals/lutein (MULTIVITAMIN 50 PLUS ORAL) Take 1 tablet by mouth. 04/22/2022 Active lisinopriL (PRINIVIL,ZESTRIL) 30 mg tablet Take 1 tablet by mouth daily. 01/01/2024 Active Encounters Date Type Department Care Team Description 01/02/2024 3:40 PM CDT Ancillary Procedure Department of Radiology in [place], [place] [address] [place] [phone] Kathy Lemus M.D. Malignant Neoplasm Of Rectum (HCC) 01/02/2024 Clinical Communication Division of Gastroenterology in [place], [place] [address] [place] [phone] Kathy Lemus M.D. Neoplasia; Order Request 01/01/2024 11:00 AM CDT Clinical Communication Virtual Review in [place], [place] [address] [place] [phone] 01/01/2024 Clinical Communication Division of Gastroenterology in [place], [place] [address] [place] [phone] Prescheduling, Provider 12/31/2023 Clinical Communication Division of Gastroenterology in [place], [place] [address] [place] [address] Kathy Lemus M.D. Neoplasia; RN Summary 12/31/2023 Clinical Communication Division of Gastroenterology in [place], [place] [address] [place] [phone] Kathy Lemus M.D. gih review (Kathy Lemus 01/06 @8AM ) from Last 3 Months Family History Medical History Relation Name Comments Esophageal cancer Father Colon cancer Paternal Grandfather Two occ urences Relation Name Status Comments Father Maternal Grandfather (Age 50s) d . [place] Paternal Grandfather (Age 100s) Social History Tobacco Use Types Packs/Day Years Used Date Smoking Tobacco: Never Assessed Nutrition Answer Date Recorded Nutrition: EVOO Fat Source Unknown 07/19 Nutrition: Servings of Fruits/Vegetables per Day Not on file 07/19/2023 Dental Answer Date Recorded Dental: Regular Dentist Unknown 07/19/19 Sex and Gender Information Value Date Recorded Sex Assigned at Female 01/01/2024 10:17 AM CDT Gender Identity Female 01/01/2024 10:17 AM CDT Sexual Orientation Straight 01/01/2024 10 :17 AM CDT Plan of Treatment Upcoming Encounters Date Type Department Care Team (Latest Contact Info) Description 01/07/2024 8:00 AM CDT Comprehensive Visit Division of Gastroenterology in [place], [place] [address] [place] [phone] Kathy Lemus M.D. [address] [place] [phone] 01/08/2024 8:00 AM CDT Comprehensive Visit Department of Medical Genetics in [place], [place] [address] [place] [phone] Kathy Lemus M.D. [address] [place] [phone] Madina Sena 01/08/2024 8:30 AM CDT Comprehensive Visit Department of Medical Genetics in [place], [place] [address] [place] [phone] Kathy Lemus M.D. [address] [place] [phone] Kathy House M.S., [facility] [address] [place] [phone] 01/13/2024 10:45 AM CDT Appointment Department of Radiology, [facility], in [place], [place] [address] [place] [phone] Kathy Lemus M.D. [address] [place] [phone] 01/15/2024 1:30 PM CDT Comprehensive Visit Department of Oncology in [place], [place] [address] [place] [phone] Lon Umanzor M.D. [address] [place] [phone] 01/15/2024 2:00 PM CDT Comprehensive Visit Division of Colon and Rectal Surgery in [address] [phone] Viraj Styles M.B., B.Ch., [facility] [address] [place] [phone] Health Maintenance Due Date Last Done Comments CT Colonography 1970 Cervical Cancer Screening 1970 Cologuard 1970 HIV Screening 1970 Hepatitis C Screening 1970 Mammogram 1970 Hepatitis B Vaccines (1 of 3 - 19+ 3-dose series) 1987 Depression Screening (Annual PHQ-2) 07/15/2023 Creatinine Level (Kidney Function Test) 12/19/2024 12/20/2023, 12/20/2023, 12/24/2022, Additional history exists Potassium Level 12/19/2024 12/20/2023, 0 01/2024, 12/24/2022, Additional history exists Sodium Level 12/19/2024 12/20/2023, 060 01/2024, 12/24/2022, Additional history exists DTaP,Tdap,and Td Vaccines (3 - Td or Tdap) 08/10/2026 08/10/2016, 11/18/2012, 01/20/2003, Additional history exists Fasting Glucose for Diabetes Screening 12/19/2026 12/20/2023, 12/20/2023, 12/24/2022, Additional history exists Colonoscopy 12/16/2028 12/17/2023 Colorectal Cancer Surveillance 12/16/2028 Lipid (Cholesterol) Screening 12/19/2028 12/20/2023, 12/24/2022, 12/19/2021, Additional history exists Zoster Vaccines Completed 10/06/2022, 06/03/2022 COVID-19 Vaccine Completed 04/20/2023, , 10/28/2021, Additional history exists Influenza Vaccine Completed 04/20/2023, , 05/16/2020 Pneumococcal vaccine (0-64 years) Aged Out No longer eligible based on patient's age to complete this topic Medical Devices Implanted Type Area Flat Sorter Processor Device Identifier Shelf Expiration Date Model / Serial / Lot Hardware E.G. Pins/Screws/Ro ds-08/28/2016 Implanted:08/15 (Quantity not on file) Hardware e.g. pins/screws/r ods Hip Procedures Procedure Name Priority Date/Time Associated Diagnosis Comments OUTSIDE MR BODY Routine 01/02/2024 8:35 AM CDT EXTI LIPID PANEL W REFLEX MEASURED LDL Routine 12/20/2023 8:31 AM CDT EXTI BASIC METABOLIC PANEL, S/P Routine 12/20/2023 8:31 AM CDT from Last 3 Months or Most Recently Relevant to Health Maintenance Results * MR PELVIS RECTUM WWO-Outside MR Body (01/02/2024 8:35 AM CDT) Narrative [facility] - 01/02/2024 12:52 PM CDT This order has been created and auto-finalized to support the import of outside images. If available, original interpretation can be found on the Media Tab in Chart Review, in Document Viewer, as an image in QREADS or as an Addendum. If a re-interpretation or overread is required please follow defined workflow.?? Provider Not In System IMG MRI PROCEDURE S [facility] NA from Last 3 Months
--- OUTSIDE RECORDS SUMMARY | 2024-01-03 07:55 | XMS_ITS | Encounter Summary ---
Author Organization [facility] Address [address] [place] [address] Care Team Providers Care Plastic And Reconstructive Surgeon Name Role Phone Unavailable Primary Care Provider Unavailabl e Encounter Details Date Type Department Care Team (Latest Contact Info) Description 01/02/2024 3:40 PM CDT Ancillary Procedure Department of Radiology in [place], [place] [address] [place] [address] Kathy Lemus M.D. 200 [place] [phone] Malignant Neoplasm Of Rectum (HCC) Social History Tobacco Use Types Packs/Day Years [...] Orientation Straight 01/01/2024 10 :17 AM CDT documented as of this encounter Plan of Treatment Upcoming Encounters Date Type Department Care Team (Latest Contact Info) Description 01/07/2024 8:00 AM CDT Comprehensive Visit Division of Gastroenterology in [place], [place] [address] [place] [phone] Kathy Lemus M.D. [address] [place] [phone] 01/08/2024 8:00 AM CDT Comprehensive Visit Department of Medical Genetics in [place], [place] [address] [place] [phone] Kathy Lemus M.D. [address] [place] [phone] Madina Sena 01/08/2024 8:30 AM CDT Comprehensive Visit Department of Medical Genetics in [place], [place] [address] [place] [phone] Kathy Lemus M.D. [address] [place] [phone] Kathy House M.S., [facility] [address] [place] [phone] 01/13/2024 10:45 AM CDT Appointment Department of Radiology, [facility] in [place], [place] [address] [place] [phone] Kathy Lemus M.D. [address] [place] [phone] 01/15/2024 1:30 PM CDT Comprehensive Visit Department of Oncology in [place], [place] [address] [place] [phone] Lon Umanzor M.D. [address] [place] [phone] 01/15/2024 2:00 PM CDT Comprehensive Visit Division of Colon and Rectal Surgery in [place], [place] [address] [place] [phone] Viraj Styles M.B., B.Ch., MJade [address] [place] [phone] Pending Results Name Type Priority Associated Diagnoses Date/Time Interpretation of Outside MR Abdomen and or Pelvis Imaging RAD - Routine (most inpatients and all outpatients) Malignant Neoplasm Of Rectum (HCC) 01/02/2024 3:56 PM CDT documented as of this encounter Visit Diagnoses Diagnosis Malignant Neoplasm Of Rectum (HCC) Malignant Neoplasm Of Rectum (HCC)- Primary documented in this encounter
--- OUTSIDE RECORDS SUMMARY | 2024-01-03 07:55 | XMS_ITS | Encounter Summary ---
Author Organization [facility] Address [address] [place] [address] Care Team Providers Care Welt Beater Name Role Phone Unavailable Primary Care Provider Unavailabl e Reason for Visit * Reason Onset Date Comments Neoplasia 12/31/2023 RN Summary 12/31/2023 Encounter Details Date Type Department Care Team (Latest Contact Info) Description 12/31/2023 Clinical Communication Division of Gastroenterology in [place], [place] [address] [place] [address] Kathy Lemus M.D. [address] [place] [phone] Neoplasia; RN Summary Social History Tobacco Use Types Packs/Day Years [...] CDT Comprehensive Visit Division of Gastroenterology in [place], [place] [address] [place] [phone] Kathy Lemus M.D. [address] [place] [phone] 01/08/2024 8:00 AM CDT Comprehensive Visit Department of Medical Genetics in [place], [place] [address] [place] [address] Kathy Lemus M.D. [address] [place] [phone] Sena Madina 01/08/2024 8:30 AM CDT Comprehensive Visit Department of Medical Genetics in [place], [place] [address] [place] [address] Kathy Lemus M.D. [address] [place] [phone] Kathy House M.S., [facility] [address] [place] [phone] 01/13/2024 10:45 AM CDT Appointment Department of Radiology, [facility], in [place], [place] [address] [place] [phone] Kathy Lemus M.D. [address] [place] [phone] 01/15/2024 1:30 PM CDT Comprehensive Visit Department of Oncology in [place], [place] [address] [place] [phone] Lon Umanzor M.D. [address] [place] [phone] 01/15/2024 2:00 PM CDT Comprehensive Visit Division of Colon and Rectal Surgery in [place], [place] [address] [place] [phone] Viraj Styles M.B., B.Ch., M.Victorino. [address] [place] [phone] documented as of this encounter Visit Diagnoses Not on filedocumented in this encounter
--- OUTSIDE RECORDS SUMMARY | 2024-01-03 07:55 | XMS_ITS | Referral Summary ---
Author Organization [facility] Address [address] [place] [address] Care Team Providers Care Lvn Name Role Phone Unavailable Primary Care Provider Unavailabl e Source Comments Patient records contain information from all sites at [facility]. For routine questions regarding patient records, call [phone] during business hours, M-F 8:00 AM - 5:00 PM Central Time. Record requests for emergency care only can be directed to [phone] at any time.[facility] Encounters Date Type Department Care Team Description 01/02/2024 3:40 PM CDT Ancillary Procedure Department of Radiology in [place], [place] [address] [place] [phone] Kathy Lemus M.D. Malignant Neoplasm Of Rectum (HCC) 01/02/2024 Clinical Communication Division of Gastroenterology in [place], [place] [address] [place] [phone] Kathy Lemus M.D. Neoplasia; Order Request 01/01/2024 Clinical Communication Division of Gastroenterology in [place], [place] [address] [place] [phone] Prescheduling, Provider 01/01/2024 11:00 AM CDT Clinical Communication Virtual Review in [place], [place] 200 [place] [address] 12/31/2023 Clinical Communication Division of Gastroenterology in [place], [place] [address] [place] [phone] Kathy Lemus M.D. Neoplasia; RN Summary 12/31/2023 Clinical Communication Division of Gastroenterology in [place], [place] [address] [place] [phone] Kathy Lemus M.D. [facility] review (Kathy Lemus 01/06 @8AM ) from Last 3 Months Allergies No known active allergies Medications Medication Sig Dispensed Refills Start Date End Date Status lisinopril (PRINIVIL,ZESTRIL) 0.625 mg tablet Take 20 mg by mouth. 04/22/2022 Active multivit with minerals/lutein (MULTIVITAMIN 50 PLUS ORAL) Take 1 tablet by mouth. 04/22/2022 Active lisinopriL (PRINIVIL,ZESTRIL) 30 mg tablet Take 1 tablet by mouth daily. 01/01/2024 Active Social History Tobacco Use Types Packs/Day Years [...] CDT Comprehensive Visit Division of Gastroenterology in [place], [place] [address] [place] [address] Kathy Lemus M.D. [address] [place] [address] 01/08/2024 8:00 AM CDT Comprehensive Visit Department of Medical Genetics in [place], [place] [address] [place] [address] Kathy Lemus M.D. [address] [place] [phone] Madina Sena 01/08/2024 8:30 AM CDT Comprehensive Visit Department of Medical Genetics in [place], [place] [address] [place] [address] Kathy Lemus M.D. [address] [place] [phone] Kathy House M.S., [facility] [place] [address] [place] [phone] 01/13/2024 10:45 AM CDT Appointment Department of Radiology, [facility], in [place], [place] [address] [place] [phone] Kathy Lemus M.D. [address] [place] [phone] 01/15/2024 1:30 PM CDT Comprehensive Visit Department of Oncology in [place], [place] [address] [place] [phone] Lon Umanzor M.D. [address] [place] [phone] 01/15/2024 2:00 PM CDT Comprehensive Visit Division of Colon and Rectal Surgery in [address] [phone] Viraj Styles M.B., B.Ch., MJade [address] [place] [phone] Medical Devices Implanted Type Area Histopathologist Device Identifier Shelf Expiration Date Model / [...]
--- OUTSIDE RECORDS SUMMARY | 2024-01-03 07:55 | XMS_ITS | Encounter Summary ---
Author Organization [facility] Address [address] [place] [address] Care Team Providers Care Fur Scraper Name Role Phone Unavailable Primary Care Provider Unavailabl e Reason for Visit * Reason Onset Date Comments Neoplasia 01/02/2024 Order Request 01/02/2024 Encounter Details Date Type Department Care Team (Latest Contact Info) Description 01/02/2024 Clinical Communication Division of Gastroenterology in [place], [place] [address] [place] [address] Kathy Lemus M.D. 200 [place] [phone] Neoplasia; Order Request Social History Tobacco Use Types Packs/Day Years [...] CDT Comprehensive Visit Division of Gastroenterology in [place], [place] [address] [place] [phone] Kathy Lemus M.D. [address] [place] [phone] 01/08/2024 8:00 AM CDT Comprehensive Visit Department of Medical Genetics in [place], [place] [address] [place] [address] Kathy Lemus M.D. [address] [place] [phone] Sena Madina 01/08/2024 8:30 AM CDT Comprehensive Visit Department of Medical Genetics in [place], [place] [address] [place] [address] Kathy Lemus M.D. [address] [place] [phone] Kathy House M.S., [facility] [address] [place] [phone] 01/13/2024 10:45 AM CDT Appointment Department of Radiology, [facility], in [place], [place] [address] [place] [phone] Kathy Lemus M.D. [address] [place] [phone] 01/15/2024 1:30 PM CDT Comprehensive Visit Department of Oncology in [place], [place] [address] [place] [phone] Lon Umanzor M.D. [address] [place] [phone] 01/15/2024 2:00 PM CDT Comprehensive Visit Division of Colon and Rectal Surgery in [place], [place] [address] [place] [phone] Viraj Styles M.B., B.Ch., M.Victorino. [address] [place] [phone] Pending Results Name Type Priority Associated Diagnoses Date/Time Interpretation of Outside MR Abdomen and or Pelvis Imaging RAD - Routine (most inpatients and all outpatients) Malignant Neoplasm Of Rectum (HCC) 01/02/2024 3:56 PM CDT Scheduled Orders Name Type Priority Associated Diagnoses Order Schedule Interpretation of Outside MR Abdomen and or Pelvis Imaging RAD - Routine (most inpatients and all outpatients) Malignant Neoplasm Of Rectum (HCC) Expected: 01/02/2024 (Approximate), Expires: 04/03/2025 documented as of this encounter Visit Diagnoses Diagnosis Malignant Neoplasm Of Rectum (HCC)- Primary Malignant Neoplasm Of Rectum (HCC)- Primary documented in this encounter
--- OUTSIDE RECORDS SUMMARY | 2024-01-03 07:55 | XMS_ITS | Encounter Summary ---
Author Organization [facility] Address [address] [place] [address] Care Team Providers Care Building Maintenance Engineer Name Role Phone Unavailable Primary Care Provider Unavailabl e Encounter Details Date Type Department Care Team (Latest Contact Info) Description 01/01/2024 Clinical Communication Division of Gastroenterology in [place], [place] [address] [place] [phone] Prescheduling, Provider Social History Tobacco Use Types Packs/Day Years [...] CDT Comprehensive Visit Division of Gastroenterology in [place], [place] [address] [place] [phone] Kathy Lemus M.D. 200 [place] [phone] 01/08/2024 8:00 AM CDT Comprehensive Visit Department of Medical Genetics in [place], [place] [address] [place] [phone] Kathy Lemus M.D. 200 [place] [phone] Madina Sena 01/08/2024 8:30 AM CDT Comprehensive Visit Department of Medical Genetics in [place], [place] [address] [place] [address] Kathy Lemus M.D. [address] [place] [address] Kathy House M.S., [facility] [address] [place] [phone] 01/13/2024 10:45 AM CDT Appointment Department of Radiology, [facility], in [place], [place] [address] [place] [address] Kathy Lmeus M.D. [address] [place] [phone] 01/15/2024 1:30 PM CDT Comprehensive Visit Department of Oncology in [place], [place] [address] [place] [phone] Lon Umanzor M.D. [address] [place] [phone] 01/15/2024 2:00 PM CDT Comprehensive Visit Division of Colon and Rectal Surgery in [place], [place] [address] [place] [address] Viraj Styles M.B., B.Ch., M.Victorino. [address] [place] [phone] documented as of this encounter Visit Diagnoses Not on filedocumented in this encounter
--- OUTSIDE RECORDS SUMMARY | 2024-01-03 07:55 | XMS_ITS | Encounter Summary ---
Author Organization [facility] Address [address] [place] [address] Care Team Providers Care Mill Turner Name Role Phone Unavailable Primary Care Provider Unavailabl e Encounter Details Date Type Department Care Team (Latest Contact Info) Description 01/01/2024 11:00 AM CDT Clinical Communication Virtual Review in [place], [place] [address] [place] [phone] Social History Tobacco Use Types Packs/Day Years [...] CDT Comprehensive Visit Division of Gastroenterology in [place], [place] [address] [place] [phone] Kathy Lemus M.D. [address] [place] [phone] 01/08/2024 8:00 AM CDT Comprehensive Visit Department of Medical Genetics in [place], [place] [address] [place] [phone] Kathy Lemus M.D. [address] [place] [phone] Madina Sena 01/08/2024 8:30 AM CDT Comprehensive Visit Department of Medical Genetics in [place], [place] [address] [place] [phone] Kathy Lemus M.D. [address] [place] [phone] Kathy House M.S., [facility] [address] [place] [phone] 01/13/2024 10:45 AM CDT Appointment Department of Radiology, [facility], in [place], [place] [address] [place] [address] Kathy Lemus M.D. [address] [place] [phone] 01/15/2024 1:30 PM CDT Comprehensive Visit Department of Oncology in [place], [place] [address] [place] [phone] Lon Umanzor M.D. [address] [place] [phone] 01/15/2024 2:00 PM CDT Comprehensive Visit Division of Colon and Rectal Surgery in [place], [place] [address] [place] [phone] Viraj Styles M.B., B.Ch., MKristi. [address] [place] [phone] documented as of this encounter Visit Diagnoses Not on filedocumented in this encounter
--- OUTSIDE RECORDS SUMMARY | 2024-01-03 07:55 | XMS_ITS | Encounter Summary ---
Author Organization [facility] Address [address] [place] [address] Care Team Providers Care Construction Safety Manager Name Role Phone Unavailable Primary Care Provider Unavailabl e Reason for Visit * Reason Onset Date Comments gih review 12/31/2023 Kathy Lemus 01/06 @8AM Encounter Details Date Type Department Care Team (Latest Contact Info) Description 12/31/2023 Clinical Communication Division of Gastroenterology in [place], [place] [address] [place] [address] Kathy Lemus M.D. [address] [place] [phone] gih review (Kathy Lemus 01/06 @8AM ) Social History Tobacco Use Types Packs/Day Years [...] CDT Comprehensive Visit Division of Gastroenterology in [place], [place] [address] [place] [address] Kathy Lemus M.D. [address] [place] [phone] 01/08/2024 8:00 AM CDT Comprehensive Visit Department of Medical Genetics in [place], [place] [address] [place] [address] Kathy Lemus M.D. [address] [place] [phone] SenaPanterace 01/08/2024 8:30 AM CDT Comprehensive Visit Department of Medical Genetics in [place], [place] [address] [place] [address] Kathy Lemus M.D. [address] [place] [phone] Kathy House M.S., [facility] [place] [address] [place] [phone] 01/13/2024 10:45 AM CDT Appointment Department of Radiology, [facility], in [place], [place] [address] [place] [address] Kathy Lemus M.D. [address] [place] [phone] 01/15/2024 1:30 PM CDT Comprehensive Visit Department of Oncology in [place], [place] [address] [place] [phone] Lon Umanzor M.D. [address] [place] [phone] 01/15/2024 2:00 PM CDT Comprehensive Visit Division of Colon and Rectal Surgery in [place], [place] [address] [place] [phone] Viraj Styles M.B., B.Ch., M.Bismark [address] [place] [phone] documented as of this encounter Visit Diagnoses Not on filedocumented in this encounter
== END 2024-01-03 07:52 | disposition home or self-care (01) ==
PROVIDERS: PCP Physician Assistant Medical; Visit Provider Obstetrics & Gynecology
DX: D27.1 Benign neoplasm of left ovary (principal)
CPT/HCPCS: 82378; 86301; 86304

== ENCOUNTER 2024-01-09 08:44 | Outpatient (CLI) | payer BC, MEDICAID, SELFPAY ==
--- NOTE | 2024-01-09 08:45 | CRLHL7_ITS ---
For Patients: As a result of the Century Cures Act, medical imaging exams and procedure reports are released immediately into your electronic medical record. You may view this report before your referring provider. If you have questions, please contact your health care provider. INDICATION: Left ovarian mass COMPARISON: CT 12/26/2023 TECHNIQUE: 2D maddox scale and color Doppler images were acquired of the pelvis using a transabdominal and transvaginal approach. FINDINGS: Sonographic images demonstrate a normal size and smooth outer contour of the uterus. Uterus measures 6.5 cm in length by 3.6 cm in AP diameter by 4.2 cm in transverse dimension. Intramural fibroid is present within the right side of the uterus measuring 11 x 10 x 10 millimeters. The endometrial lining appears normal and measures 2.2 mm in composite thickness. The right ovary is not visualized and the left ovary measures 3.7 x 2.2 x 3.0 cm. The left ovary demonstrates normal arterial and venous blood flow on color Doppler analysis. There are no suspicious fluid collections within the cul-de-sac. Simple anechoic left ovarian cyst is present measuring 1.6 x 1.2 x 1.4 cm. Heterogeneously hyperechoic left ovarian cyst is also present measuring 2.2 x 2.1 x 2.1 cm. 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 Dictated by John Serrano MD @ 01/10/2024 6:28:02 AM (Electronically Signed)
--- OUTSIDE RECORDS SUMMARY | 2024-01-09 08:47 | XMS_ITS | Clinical Summary ---
Author Organization [facility] Address [address] [place] [address] Care Team Providers Care Motor Installer Name Role Phone Unavailable Primary Care Provider Unavailabl e Source Comments Patient records contain information from all sites at [facility]. For routine questions regarding patient records, call [phone] during business hours, M-F 8:00 AM - 5:00 PM Central Time. Record requests for emergency care only can be directed to [phone] at any time.[facility] Allergies No known active allergies Medications Medication Sig Dispensed Refills Start Date End Date Status lisinopril (PRINIVIL,ZESTRIL) 0.625 mg tablet Take 20 mg by mouth. 04/22/2022 Active multivit with minerals/lutein (MULTIVITAMIN 50 PLUS ORAL) Take 1 tablet by mouth. 04/22/2022 Active lisinopriL (PRINIVIL,ZESTRIL) 30 mg tablet Take 1 tablet by mouth daily. 01/01/2024 Active Active Problems Problem Noted Date Diagnosed Date Malignant Neoplasm Of Rectosigmoid 01/07/2024 Encounters Date Type Department Care Team Description 01/08/2024 8:30 AM CDT Telemedicine Department of Medical Genetics in [place], [place] [address] [place] [address] Kathy Lemus M.D. Kathy House, M.S., [facility] Malignant Neoplasm Of Rectum (HCC) (Primary Dx) 01/08/2024 8:00 AM CDT Telemedicine Department of Medical Genetics in [place], [place] [address] [place] [address] Kathy Lemus M.D. Madina Sena Malignant Neoplasm Of Rectum (HCC) 01/07/2024 9:20 AM CDT - 01/07/2024 11:59 PM CDT Hospital Encounter Department of Laboratory Medicine and Pathology, [facility], in [address] [phone] Kathy Lemus M.D. Malignant Neoplasm Of Rectum (HCC); Clinical Research Exam Discharge Disposition: Home or Self Care 01/07/2024 8:00 AM CDT Comprehensive Visit Division of Gastroenterology in [address] [phone] Kathy Lemus M.D. Malignant Neoplasm Of Rectum (HCC) (Primary Dx); Clinical Research Exam 01/07/2024 Patient Outreach Department of Oncology in [address] [phone] Joanie Flores R.N. Record Review (Pre-MDC) 01/03/2024 Orders Only Division of Gastroenterology in [address] [address] Kathy Lemus M.D. Mass Adnexal (Primary Dx) 01/02/2024 3:40 PM CDT Ancillary Procedure Department of Radiology in [address] [address] Kathy Lemus M.D. Malignant Neoplasm Of Rectum (HCC) 01/02/2024 Clinical Communication Division of Gastroenterology in [address] [address] Kathy Lemus M.D. Neoplasia; Order Request 01/01/2024 11:00 AM CDT Clinical Communication Virtual Review in [place], [place] [address] [place] [address] 01/01/2024 7:10 AM CDT Lab RST RO LMP [address] [place] [phone] Kathy Lemus M.D. Malignant Neoplasm Of Rectum (HCC) 01/01/2024 Clinical Communication Division of Gastroenterology in [address] [phone] Prescheduling, Provider 12/31/2023 Clinical Communication Division of Gastroenterology in [address] [place] [address] Kathy Lemus M.D. Neoplasia; RN Summary 12/31/2023 Clinical Communication Division of Gastroenterology in [place], [place] [address] [place] [address] Kathy Lemus M.D. gih review (Kathy Lemus 01/06 @8AM ) from Last 3 Months Family History Medical History Relation Name Comments Esophageal cancer Father Mets to li verHx of hernias, acid reflux as wellFormer pipe smoker (45-50 yr before dx) Colon cancer Paternal Grandmother Two occ urences, second dx in late 80s Relation Name Status Comments Brother Alive Father (Age 81) d. Pneumon ia Father's Brother Alive Father's Sister Maternal Grandfather (Age 50s) d . [place] Maternal Grandmother d. hear t disease Mother Alive Mother's Sister (Age 88) Niece/Nephew Alive A/W Paternal Cousin 1 Alive Paternal Cousin 2 Alive Paternal Grandfather d. stro ke Paternal Grandmother (Age 108) Sister Alive Son 1 Alive Son 2 Alive Social History Tobacco Use Types Packs/Day Years Used Date Smoking Tobacco: Never Assessed [facility] Utilities Answer Date Recorded In the past 12 months has th e [employer], gas, oil, or water [employer] threatened to shut off services in your home? No 01/08/2024 Exercise Vital Sign Answer Date Recorde d On average, how many days pe r week do you engage in moderate to strenuous exercise (like a brisk walk)? 5 days 01/03/2024 On average, how many minutes do you engage in exercise at this level? 30 min 01/03/2024 Hunger Vital Sign Answer Date Recorded Within the past 12 months, y ou worried that your food would run out before you got the money to buy more. Never true 01/08/20 24 Within the past 12 months, t he food you bought just didn't last and you didn't have money to get more. Never true 01/08/2024 PRAPARE - Transportation Answer Date Re corded In the past 12 months, has l ack of transportation kept you from medical appointments or from getting medications? No 12/14 In the past 12 months, has l ack of transportation kept you from meetings, work, or from getting things needed for daily living? No 01/08/2024 Nutrition Answer Date Recorded On average, how many serving s of fruits and vegetables do you eat per day (serving size is equal to 1 cup or approximately the size of a tennis ball)? 3-5 01/03/2024 Dental Answer Date Recorded Dental: Regular Dentist Yes 01/03/20 Employment Answer Date Recorded Employment status Employed and actively working without restrictions 01/03/2024 Housing Stability Answer Date Recorded What is your living situation today? I have a [facility] place to live 01/08/2024 Sex and Gender Information Value Date Recorded Sex Assigned at Female 01/01/2024 10:17 AM CDT Gender Identity Female 01/01/2024 10:17 AM CDT Sexual Orientation Straight 01/01/2024 10 :17 AM CDT Last Filed Vital Signs Vital Sign Reading Time Taken Comments Blood Pressure 171/105 01/07/2024 7:45 AM CDT Pulse 79 01/07/2024 7:45 AM CDT Temperature - - Respiratory Rate - - Oxygen Saturation - - Inhaled Oxygen Concentration - - Weight 72.6 kg (160 lb 0.9 oz) 01/07/2024 7:45 A M CDT Height 173 cm (5' 8.11) 01/07/2024 7:45 AM CDT Body Mass Index 24.26 01/07/2024 7:45 AM CDT Plan of Treatment Upcoming Encounters Date Type Department Care Team (Late st Contact Info) Description 01/15/2024 1:30 PM CDT Comprehensive Visit Department of Oncology in [place], [place] [address] [place] [phone] Lon Umanzor M.D. [address] [place] [phone] 01/15/2024 2:00 PM CDT Comprehensive Visit Division of Colon and Rectal Surgery in [place], [place] [address] [place] [phone] Viraj Styles M.B., B.Ch., M.Victorino. [address] [place] [phone] Health Maintenance Due Date Last Done Comments CT Colonography 1968 Cervical Cancer Screening 1968 Cologuard 1968 HIV Screening 1968 Hepatitis C Screening 1968 Mammogram 1968 Hepatitis B Vaccines (1 of 3 - 19+ 3-dose series) 1987 Depression Screening (Annual PHQ-2) 07/15/2023 Office Visit for Blood Pressure Check / Re-check 04/08/2024 01/07/2024 Creatinine Level (Kidney Function Test) 12/19/2024 12/20/2023, 12/20/2023, 12/24/2022, Additional history exists Potassium Level 12/19/2024 12/20/2023, 06/0 01/2024, 12/24/2022, Additional history exists Sodium Level 12/19/2024 12/20/2023, 06/0 01/2024, 12/24/2022, Additional history exists DTaP,Tdap,and Td [...] this topic Medical Devices Implanted Type Area Clinical Trial Manager Device Identifier Shelf Expiration Date Model / Serial / Lot Hardware E.G. Pins/Screws/Ro ds-08/28/2016 Implanted:08/15 (Quantity not on file) Hardware e.g. pins/screws/r ods Hip Procedures Procedure Name Priority Date/Time Associated Diagnosis Comments CRYOPRESERVATION FOR MOLEC STUDIES Routine 01/07/2024 9:57 AM CDT Malignant Neoplasm Of Rectum (HCC) [facility] RESEARCH ORDER, B Routine 9:56 AM CDT Clinical Research Exam INTERPRETATION OF OUTSIDE MR ABDOMEN AND OR PELVIS RAD - Routine (most inpatients and all outpatients) 01/02/2024 3:56 PM CDT Malignant Neoplasm Of Rectum (HCC) OUTSIDE MR BODY Routine 01/02/2024 8:[address] BODY Routine 12/26/2023 12:00 AM CDT EXTI LIPID PANEL W REFLEX MEASURED LDL Routine 12/20/2023 8:31 AM CDT EXTI BASIC METABOLIC PANEL, S/P Routine 12/20/2023 8:31 AM CDT PATHOLOGY REVIEW OF OUTSIDE MATERIAL Routine 12/17/2023 12:00 AM CDT Malignant Neoplasm Of Rectum (HCC) from Last 3 Months or Most Recently Relevant to Health Maintenance Results * Cryopreservation for Molecular Genetic Studies (01/07/2024 9:57 AM CDT) Comment A DNA specimen has been stored for future genomic studies. This specimen has been stored at the request of the ordering physician for anticipated future testing. In some instances, a portion of the specimen may remain available (by consent) for use by the individual and/or family. This is not a DNA banking service. If senior living, guaranteed specimen storage is required, DNA banking should be considered. The Genomic Extraction Core extracted DNA. DNA Volume (microliters): ??500+ Please review the following table to determine the possible number of tests that can be added for send out testing. DNA (ul) ? Possible Send Outs (~120 ul) <100 ? Recommend Redraw 100 ?1 250 ?2 500 ?4 01/08/2024 2:01 PM CDT DTL Specimen WB Whole Blood 01/08/2024 2:01 PM CDT DTL Released By CHEOAsh OLMOS 01/08/2024 2:01 PM CDT DTL Blood (Blood, Peripheral Draw) 01/07/2024 9:57 AM CDT 01/07/2024 11:30 AM CDT Kathy Lemus M.D. LAB GENETIC TESTING Performing Organization Address City/[facility]/ZIP Co de Phone Number [facility] [address] [place] [address], [facility] DTL [address] [address] * [facility] Research, Blood (01/07/2024 9:56 AM CDT) Number of Specimens 9 01/07/2024 9:56 AM CDT HSS Blood (Blood, Venous) 01/07/2024 9:56 AM CDT 01/07/2024 9:56 AM CDT Kathy Lemus M.D. LAB RESEARCH NO RES ULT ROUTING Performing Organization Address [facility]/ZIP Co de Phone Number [facility] [address] [place] [address], [facility] HSS [facility] [address] [place] [address] * Interpretation of Outside MR Abdomen and or Pelvis (01/02/2024 3:56 PM CDT) Anatomical Region Laterality Modality Abdominal RST LOS, Abdominal ARZ LOS, Abdominal FLA LOS, Abdomen, Other, Pelvis N/A Magnetic Resonance Impressions 01/03/2024 11:45 AM CDT 1. Primary Tumor Location: rectosigmoid MR Stage: ??T1/2 (tumor confined to rectal wall) MRF: ??Not applicable Suspicious extra mesorectal lymph nodes: ??absent EMVI: ??absent. 2. 4.4 cm left adnexal cystic lesion is incompletely evaluated. Recommend ultrasound correlation. 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 COMPARISON: ??none PRIMARY TUMOR: MORPHOLOGY, LOCATION, AND CHARACTERISTICS: Craniocaudal length: ??4.2 cm Morphology: ??Annular Mucinous: ??no Distance to the anal verge (intersphincteric groove): ??16 Distance to the top of sphincter complex/anorectal junction: 13 ??cm Relationship to anterior peritoneal reflection: ??Above Relationship of the tumor to a line drawn between the sacral promontory and the top of the pubic symphysis: Below MR-T category: ??T1/2 (tumor confined to rectal wall) EMVI: ??No Tumor Deposits: ??No MRF: NA LYMPH NODES: Mesorectal/superior rectal/inferior mesenteric lymph nodes and/or tumor deposits: ??N0 (no visible lymph nodes/deposits) *Suspicious morphologic criteria: (1) round shape, (2) irregular borders, (3) heterogeneous signal intensity 6 mm round lymph node (series 2 image 13) is nonspecific. Extra mesorectal lymph nodes, locoregional (internal iliac, obturator and inguinal only if tumor is below the dentate line): Negative. Extra mesorectal lymph nodes, non-locoregional (M1: external iliac, common iliac, inguinal if tumor above the dentate line, retroperitoneal): Negative. Other: ??Bilateral CLAIRE. 4.4 cm left adnexal cystic lesion (series 3 image 6) is incompletely evaluated. Exam quality: adequate Procedure Note Scotty Roth M.D. - 01/03/2024 EXAM: INTERPRETATION OF OUTSIDE MR ABDOMEN AND OR PELVIS Outside MRI of pelvis without and with IV contrast dated 01/02/2024 CLINICAL INFORMATION: recently diagnosed adenocarcinoma of therectosigmoid colon COMPARISON: none PRIMARY TUMOR: MORPHOLOGY, LOCATION, AND CHARACTERISTICS: Craniocaudal length: 4.2 cm Morphology: Annular Mucinous: no Distance to the anal verge (intersphincteric groove): 16 Distance to the top of sphincter complex/anorectal junction: 13 cm Relationship to anterior peritoneal reflection: Above Relationship of the tumor to a line drawn between the sacral promontoryand the top of the pubic symphysis: Below MR-T category: T1/2 (tumor confined to rectal wall) EMVI: No Tumor Deposits: No MRF: NA LYMPH NODES: Mesorectal/superior rectal/inferior mesenteric lymph nodes and/or tumordeposits: N0 (no visible lymph nodes/deposits) *Suspicious morphologic criteria: (1) round shape, (2) irregular borders,(3) heterogeneous signal intensity 6 mm round lymph node (series 2 image 13) is nonspecific. Extra mesorectal lymph nodes, locoregional (internal iliac, obturator andinguinal only if tumor is below the dentate line): Negative. Extra mesorectal lymph nodes, non-locoregional (M1: external iliac, commoniliac, inguinal if tumor above the dentate line, retroperitoneal):Negative. Other: Bilateral CLAIRE. 4.4 cm left adnexal cystic lesion (series 3 image6) is incompletely evaluated. Exam quality: adequate IMPRESSION: 1. Primary Tumor Location: rectosigmoid MR Stage: T1/2 (tumor confined to rectal wall) MRF: Not applicable Suspicious extra mesorectal lymph nodes: absent EMVI: absent. 2. 4.4 cm left adnexal cystic lesion is incompletely evaluated. Recommendultrasound correlation. Kathy Lemus M.D. [facility] MRI PROCEDURES * MR PELVIS RECTUM WWO-Outside MR Body (01/02/2024 8:35 AM CDT) Narrative [facility] - 01/02/2024 12:52 PM CDT This order has been created and auto-finalized to support the import of outside images. If available, original interpretation can be found on the Media Tab in Chart Review, in Document Viewer, as an image in QREADS or as an Addendum. If a re-interpretation or overread is required please follow defined workflow.?? Provider Not In System [facility] MRI PROCEDURE S [facility] NA * Outside CT Body (12/26/2023 12:00 AM CDT) 12/27/2023 12:3 6 PM CDT Addenda Addendum by [employer], Outside on 12/27/2023 12:36 PM CDT BELOW REPORT RECEIVED BY [facility] [place] [facility] ON 01/07/2024 11:19:53 [id number] For Patients: ??As a result of the Century Cures Act, medical imaging exams and procedure reports are released immediately into your electronic medical record. ??You may view this report before your referring provider. ?? If you have questions, please contact your [...] appears within normal limits. There is a well-circumscribed fat and soft tissue density lesion in [...] MD @ 12/27/2023 12:36:50 PM (Electronically Signed) 8 READ BY Bishnu Valerio RELEASED BY KATHLEEN Addendum by [employer], Outside on 12/27/2023 12:36 PM CDT BELOW REPORT RECEIVED BY [facility] [place] ON 01/07/2024 11:17:33 [id number] For Patients: ??As a result of the Cures Act, medical imaging exams and procedure reports are released immediately into your electronic medical record. ??You may view this report before your referring provider. ?? If you have questions, please contact your [...] appears within normal limits. There is a well-circumscribed fat and soft tissue density lesion in [...] MD @ 12/27/2023 12:36:50 PM (Electronically Signed) 8 READ BY Bishnu Valerio RELEASED BY KATHLEEN Addendum by [employer], Outside on 12/27/2023 12:36 PM CDT BELOW REPORT RECEIVED BY [facility] [place] ON 01/07/2024 11:16:43 [id number] For Patients: ??As a result of the Century Cures Act, medical imaging exams and procedure reports are released immediately into your electronic medical record. ??You may view this report before your referring provider. ?? If you have questions, please contact your [...] appears within normal limits. There is a well-circumscribed fat and soft tissue density lesion in [...] MD @ 12/27/2023 12:36:50 PM (Electronically Signed) 8 READ BY Bishnu Valerio RELEASED BY KATHLEEN Narrative IMAGING - 01/07/2024 11:35 AM CDT This order has been created and auto-finalized to support the import of outside images. If available, original interpretation can be found on the Media Tab in Chart Review, in Document Viewer, as an image in QREADS or as an Addendum. If a re-interpretation or overread is required please follow defined workflow.?? Procedure Note [employer], Outside - 01/07/2024 This order has been created and auto-finalized to support the import ofoutside images. If available, original interpretation can be found on theMedia Tab in Chart Review, in Document Viewer, as an image in QREADS or asan Addendum. If a re-interpretation or overread is required please follow definedworkflow.?? Provider Not In System IMG CT PROCEDURES IMAGING NA * Pathology Review of Outside Material (12/17/2023 12:00 AM CDT) 01/07/2024 7:29 PM CDT DTL Report electronically signed by Naun Agudelo M.D. I verify that I have examined all relevant slides/materials for the specimen(s) and rendered or confirmed the diagnosis. 01/07/2024 7:29 PM CDT DTL Material Received A. [id number]: Ascending colon, sigmoid polyp, rectal-sigmoid ? 9 stained slides 01/07/2024 7:29 PM CDT DTL Interpretation FINAL DIAGNOSIS Colon and rectum, biopsy ([id number]; 12/17/2023): ? A. ??Colon, ascending, polypectomy: ??Tubular adenoma, low-grade dysplasia. ? B. ??Colon, sigmoid at 35 cm, polypectomies: ??Fragments of tubular adenoma, low-grade dysplasia. ? C. ??Colon, sigmoid at 20 cm, polypectomy: ??Fragments of tubular adenoma, low-grade dysplasia. ? D. ??Colon, rectosigmoid, mass: ??Positive for malignancy. ??Superficial fragments of moderately differentiated adenocarcinoma. Immunohistochemistry for mismatch repair proteins was performed at the referring institution and reviewed at [facility]. 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 Digital imaging was used in the diagnostic assessment of this case. 01/07/2024 7:29 PM CDT DTL Varies 12/17/2023 01/03/2024 2:3 8 PM CDT Kathy Lemus M.D. LAB SURG PATH ORDER [facility] [address] [place] [address], [facility] DTL [address] [place] [address] from Last 3 Months
--- OUTSIDE RECORDS SUMMARY | 2024-01-09 08:48 | XMS_ITS | Encounter Summary ---
Author Organization [facility] Address [address] [place] [address] Care Team Providers Care Production Cloth Cutter Name Role Phone Unavailable Primary Care Provider Unavailabl e Reason for Visit * Reason Onset Date Comments gih review 12/31/2023 Kathy Lemus 01/06 @8AM Encounter Details Date Type Department Care Team (Latest Contact Info) Description 12/31/2023 Clinical Communication Division of Gastroenterology in [place], [place] [address] [place] [phone] Kathy Lemus M.D. [address] [place] [phone] gi review (Kathy Lemus 01/06 @8AM ) Social History Tobacco Use Types Packs/Day Years Used Date Smoking Tobacco: Never Assessed [facility] Utilities Answer Date Recorded In the past 12 months has th e electric, gas, oil, or water company threatened to shut off services in your home? No 01/03/2024 Exercise Vital Sign Answer Date Recorde d [...] the money to buy more. Never true 01/03/20 24 Within the past 12 months, t he food you bought just didn't last and you didn't have money to get more. Never true 01/03/2024 PRAPARE - Transportation Answer Date Re corded In the past 12 months, has l ack of transportation kept you from medical appointments or from getting medications? No 12/14 In the past 12 months, has l ack of transportation kept you from meetings, work, or from getting things needed for daily living? No 01/03/2024 Nutrition Answer Date Recorded On average, how [...] your living situation today? I have a [facility] place to live 01/03/2024 Sex and Gender Information Value Date Recorded Sex Assigned at Female 01/01/2024 10:17 AM CDT Gender Identity Female 01/01/2024 10:17 AM CDT Sexual Orientation Straight 01/01/2024 10 :17 AM CDT documented as of this encounter Plan of Treatment Upcoming Encounters Date Type Department Care Team (Late st Contact Info) Description 01/15/2024 1:30 PM CDT Comprehensive Visit Department of Oncology in [place], [place] [address] [place] [phone] Lon Umanzor M.D. [address] [place] [phone] 01/15/2024 2:00 PM CDT Comprehensive Visit Division of Colon and Rectal Surgery in [place], [place] [address] [place] [phone] Viraj Styles M.B., B.Ch., M.D. [address] [place] [phone] documented as of this encounter Visit Diagnoses Not on filedocumented in this encounter
--- OUTSIDE RECORDS SUMMARY | 2024-01-09 08:48 | XMS_ITS | Encounter Summary ---
Author Organization [facility] Address [address] [place] [address] Care Team Providers Care Product Consultant Name Role Phone Unavailable Primary Care Provider Unavailabl e Encounter Details Date Type Department Care Team (Latest Contact Info) Description 01/02/2024 3:40 PM CDT Ancillary Procedure Department of Radiology in [place], [place] [address] [place] [phone] Kathy Lemus M.D. [address] [place] [phone] Malignant Neoplasm Of Rectum (HCC) Social History Tobacco Use Types Packs/Day Years Used Date Smoking Tobacco: Never Assessed [facility] Utilities Answer Date Recorded In the past 12 months has e electric, gas, oil, or water company [...] Date Recorded Dental: Regular Dentist Yes 01/03/20 24 Employment Answer Date Recorded Employment status Employed and actively working without restrictions 01/03/2024 Housing Stability Answer Date Recorded What is your living situation today? I have a [facility] place to live 01/03/2024 Sex and Gender [...] CDT Comprehensive Visit Department of Oncology in [place], [place] [address] [place] [phone] Lon Umanzor M.D. [address] [place] [phone] 01/15/2024 2:00 PM CDT Comprehensive Visit Division of Colon and Rectal Surgery in [place], [place] [address] [place] [phone] Viraj Styles M.B., B.Ch., M.D. [address] [place] [phone] documented as of this encounter Procedures Procedure Name Priority Date/Time Associated Diagnosis Comments INTERPRETATION OF OUTSIDE MR ABDOMEN AND OR PELVIS RAD - Routine (most inpatients and all outpatients) 01/02/2024 3:56 PM CDT Malignant Neoplasm Of Rectum (HCC) documented in this encounter Results * Interpretation of Outside MR Abdomen and [...] lesion is incompletely evaluated. Recommendultrasound correlation. Kathy ANG MRI PROCEDURES documented in this encounter Visit Diagnoses Diagnosis Malignant Neoplasm Of Rectum (HCC) documented in this encounter
--- OUTSIDE RECORDS SUMMARY | 2024-01-09 08:48 | XMS_ITS | Encounter Summary ---
Author Organization [facility] Address [address] [place] [address] Care Team Providers Care Bark Tanner Name Role Phone Unavailable Primary Care Provider Unavailabl e Encounter Details Date Type Department Care Team (Latest Contact Info) Description 01/03/2024 Orders Only Division of Gastroenterology in [place], [place] [address] [place] [address] Kathy Lemus M.D. [address] [place] [phone] Mass Adnexal (Primary Dx) Social History Tobacco Use Types Packs/Day Years Used Date Smoking Tobacco: Never Assessed [facility] Utilities Answer Date Recorded In the [...] your living situation today? I have a [facility] place to live 01/03/2024 Sex and [...] CDT Comprehensive Visit Department of Oncology in [place], [place] [address] [place] [address] Lon Umanzor M.D. [address] [place] [phone] 01/15/2024 2:00 PM CDT Comprehensive Visit Division of Colon and Rectal Surgery in [place], [place] [address] [place] [address] Viraj Styles M.B., B.Ch., M.D. [address] [place] [phone] documented as of this encounter Visit Diagnoses Diagnosis Mass Adnexal- Primary documented in this encounter
--- OUTSIDE RECORDS SUMMARY | 2024-01-09 08:48 | XMS_ITS | Encounter Summary ---
Author Organization [facility] Address [address] [place] [address] Care Team Providers Care Conduit Mechanic Name Role Phone Unavailable Primary Care Provider Unavailabl e Encounter Details Date Type Department Care Team (Late st Contact Info) Description 01/01/2024 7:10 AM CDT Lab RST RO LMP [address] [place] [address] Kathy Lemus M.D. [address] [place] [phone] Malignant Neoplasm Of Rectum (HCC) Social History Tobacco Use Types Packs/Day Years Used Date Smoking Tobacco: Never Assessed [facility] Utilities Answer Date Recorded In the past [...] your living situation today? I [facility] a [facility] place [facility] 01/08/2024 Sex and Gender [...] CDT Comprehensive Visit Department of Oncology in [place], [place] [address] [place] [phone] Lon Umanzor M.D. [address] [place] [phone] 01/15/2024 2:00 PM CDT Comprehensive Visit Division of Colon and Rectal Surgery in [place], [place] [address] [place] [phone] Viraj Styles M.B., B.Ch., M.[place] [address] [place] [phone] documented as of this encounter Procedures Procedure Name Priority Date/Time Associated Diagnosis Comments PATHOLOGY REVIEW OF OUTSIDE MATERIAL Routine 12/17/2023 12:00 AM CDT Malignant Neoplasm Of Rectum (HCC) documented in this encounter Results * Pathology Review of Outside Material (12/17/2023 12:00 AM CDT) 01/07/2024 7:29 PM CDT DTL Report electronically signed by Naun Agudelo M.D. I verify that I have examined all relevant slides/materials for the specimen(s) and rendered or confirmed the diagnosis. 01/07/2024 7:29 PM CDT DTL Material Received A. [id number]: Ascending colon, sigmoid polyp, rectal-sigmoid ? 9 stained slides 01/07/2024 7:29 PM CDT DTL Interpretation FINAL DIAGNOSIS Colon and rectum, biopsy ([id number]; 12/17/2023): ? A. ??Colon, ascending, polypectomy: ??Tubular [...] at the referring institution and reviewed at [facility]. 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 Digital imaging was used in the diagnostic assessment of this case. 01/07/2024 7:29 PM CDT DTL Varies 12/17/2023 01/03/2024 2:3 8 PM CDT Kathy Lemus M.D. LAB SURG PATH ORDER [facility] [address] [place] [address], [facility] DTL [address] [place] [address] documented in this encounter Visit Diagnoses Diagnosis Malignant Neoplasm Of Rectum (HCC) documented in this encounter
--- OUTSIDE RECORDS SUMMARY | 2024-01-09 08:48 | XMS_ITS | Encounter Summary ---
Author Organization [facility] Address [address] [place] [address] Care Team Providers Care Deputy Sheriff/Investigator Name Role Phone Unavailable Primary Care Provider Unavailabl e Encounter Details Date Type Department Care Team (Latest Contact Info) Description 01/07/2024 9:20 AM CDT - 01/07/2024 11:59 PM CDT Hospital Encounter Department of Laboratory Medicine and Pathology, [facility], in [place], [place] [address] [place] [address] Kathy Lemus M.D. [address] [place] [address] Malignant Neoplasm Of Rectum (HCC); Clinical Research Exam Discharge Disposition: Home or Self Care Social History Tobacco Use Types Packs/Day Years Used Date Smoking Tobacco: Never Assessed [facility] Utilities Answer Date Recorded In the past 12 months has e electric, gas, oil, or water [employer] threatened to shut off services in your [...] your living situation today? I have a [facility] place to live 01/08/2024 Sex and Gender Information Value Date Recorded Sex Assigned at Female 01/01/2024 10:17 AM CDT Gender Identity Female 01/01/2024 10:17 AM CDT Sexual Orientation Straight 01/01/2024 10 :17 AM CDT documented as of this encounter Medications at Time of Discharge Medication Sig Dispensed Refills Start Date End Date lisinopril (PRINIVIL,ZESTRIL) 0.625 mg tablet Take 20 mg by mouth. 04/22/2022 lisinopriL (PRINIVIL,ZESTRIL) 30 mg tablet Take 1 tablet by mouth daily. 01/01/2024 multivit with minerals/lutein (MULTIVITAMIN 50 PLUS ORAL) Take 1 tablet by mouth. 04/22/2022 documented as of this encounter Plan of Treatment Upcoming Encounters Date Type Department Care Team (Late st Contact Info) Description 01/15/2024 1:30 PM CDT Comprehensive Visit Department of Oncology in [place], [place] [address] [place] [address] Lon Umanzor M.D. [address] [place] [phone] 01/15/2024 2:00 PM CDT Comprehensive Visit Division of Colon and Rectal Surgery in [place], [place] [address] [place] [phone] Viraj Styles M.B., B.Ch., M.Victorino. [address] [place] [address] documented as of this encounter Procedures Procedure Name Priority Date/Time Associated Diagnosis Comments CRYOPRESERVATION FOR MOLEC STUDIES Routine 01/07/2024 9:57 AM CDT Malignant Neoplasm Of Rectum (HCC) [facility] RESEARCH ORDER, B Routine 9:56 AM CDT Clinical Research Exam documented in this encounter Results * Cryopreservation for Molecular Genetic Studies [...] is not a DNA banking service. If group home, guaranteed specimen storage is required, DNA banking [...] 01/08/2024 2:01 PM CDT DTL Released By CHEO OLMOS 01/08/2024 2:01 PM CDT DTL Blood (Blood, Peripheral Draw) 01/07/2024 9:57 AM CDT 01/07/2024 11:30 AM CDT Kathy Lemus M.D. LAB GENETIC TESTING [facility] - [address] [address], [facility] DTL [address] [address] * [facility] [place] [facility] [place], Blood (01/07/2024 9:56 AM CDT) Number of Specimens 9 01/07/2024 9:56 AM CDT HSS Blood (Blood, Venous) 01/07/2024 9:56 AM CDT 01/07/2024 9:56 AM CDT Kathy Lemus M.D. LAB RESEARCH NO RES ULT [facility] - [address] [address], [address] [address] documented in this encounter Visit Diagnoses Diagnosis Malignant Neoplasm Of Rectum (HCC) Clinical Research Exam documented in this encounter
--- OUTSIDE RECORDS SUMMARY | 2024-01-09 08:48 | XMS_ITS | Encounter Summary ---
Author Organization [facility] Address [address] [place] [address] Care Team Providers Care Nutrition And Dietetics Instructor Name Role Phone Unavailable Primary Care Provider Unavailabl e Reason for Visit * Reason Onset Date Comments Neoplasia 01/02/2024 Order Request 01/02/2024 Encounter Details Date Type Department Care Team (Latest Contact Info) Description 01/02/2024 Clinical Communication Division of Gastroenterology in [place], [place] [address] [place] [address] Kathy Lemus M.D. [address] [place] [address] Neoplasia; Order Request Social History Tobacco Use Types Packs/Day Years Used Date Smoking Tobacco: Never Assessed [facility] Utilities Answer Date Recorded In the [...] your living situation today? I have a [facility] place to live 01/03/2024 Sex and Gender [...] CDT Comprehensive Visit Department of Oncology in [place], [place] [address] [place] [phone] Lon Umanzor M.D. [address] [place] [phone] 01/15/2024 2:00 PM CDT Comprehensive Visit Division of Colon and Rectal Surgery in [place], [place] [address] [place] [phone] Viraj Styles M.B., B.Ch., M.Victorino. [address] [place] [phone] documented as of this encounter Results * Interpretation of Outside [...] Rectum (HCC)- Primary Malignant Neoplasm Of Rectum (HCC) documented in this encounter
--- OUTSIDE RECORDS SUMMARY | 2024-01-09 08:48 | XMS_ITS | Encounter Summary ---
Author Organization [facility] Address [address] [place] [address] Care Team Providers Care Oven Heater Helper Name Role Phone Unavailable Primary Care Provider Unavailabl e Reason for Visit * Reason Onset Date Comments Neoplasia 12/31/2023 RN Summary 12/31/2023 Encounter Details Date Type Department Care Team (Latest Contact Info) Description 12/31/2023 Clinical Communication Division of Gastroenterology in [place], [place] [address] [place] [address] Kathy Lemus M.D. [address] [place] [address] Neoplasia; RN Summary Social History Tobacco Use Types Packs/Day Years Used Date Smoking Tobacco: Never Assessed [facility] Utilities Answer Date Recorded In the [...] your living situation today? I have a [facility] place to live 01/03/2024 Sex and [...] CDT Comprehensive Visit Department of Oncology in [place], [place] [address] [place] [address] Lon Umanzor M.D. [address] [place] [phone] 01/15/2024 2:00 PM CDT Comprehensive Visit Division of Colon and Rectal Surgery in [place], [place] [address] [place] [address] Viraj Styles M.B., B.Ch., M.D. [address] [place] [phone] documented as of this encounter Visit Diagnoses Not on filedocumented in this encounter
--- OUTSIDE RECORDS SUMMARY | 2024-01-09 08:48 | XMS_ITS | Encounter Summary ---
Author Organization [facility] Address [address] [place] [address] Care Team Providers Care Merchant Tailor Name Role Phone Unavailable Primary Care Provider Unavailabl e Reason for Visit * Outpatient (Routine) - Closed Specialty Diagnoses / Procedures Referred By Ashish mendiola Referred To Contact Clinical Genomics Diagnoses Malignant Neoplasm Of Rectum (HCC) Kathy Lemus M.D. [address] [place] [phone] [facility] Referral ID Status Reason Start Date Expiration Date Visits Re quested Visits Authorized [id number] Closed 12/31/2023 07/01/2025 1 1 Encounter Details Date Type Department Care Team (Late st Contact Info) Description 01/08/2024 8:30 AM CDT Telemedicine Department of Medical Genetics in [place], [place] [address] [place] [phone] Kathy Lemus M.D. [address] [place] [address] [phone] Kathy House M.S., [facility] [address] [place] [phone] Malignant Neoplasm Of Rectum (HCC) (Primary Dx) Social History Tobacco Use Types Packs/Day Years Used Date Smoking Tobacco: Never Assessed [facility] Utilities Answer Date Recorded In [...] money to buy more. Never true 01/08/20 Within the past 12 months, t he [...] your living situation today? I have a [facility] place to live 01/08/2024 Sex and Gender Information Value Date Recorded Sex Assigned at Female 01/01/2024 10:17 AM CDT Gender Identity Female 01/01/2024 10:17 AM CDT Sexual Orientation Straight 01/01/2024 10 :17 AM CDT documented as of this encounter Consult Notes * Kathy House M.S., [facility] - 01/08/2024 8:30 AM CDT Images from the original note were not included. REFERRING PROVIDER Kathy Lemus M.D. CHIEF COMPLAINT Colorectal cancer HISTORY OF PRESENT ILLNESS Mary Gaytan is a delightful 53 y.o. female referred today by Kathy Lemus M.D. due to their diagnosis of colorectal cancer. Mary was diagnosed with rectal cancer at age 53. Final pathology demonstrated adenocarcinoma. Immunohistochemistry was performed and demonstrated intact MMR proteins. The patient is undergoing treatment evaluation. Of note, Mary has a personal history of 9 lifetime adenomatous polyps. The patient reports no additional personal history of cancer. Mary retains uterus and ovaries. The family history is significant for colorectal cancer and esophageal cancer. Please see family history section below for additional details. The patient attended today's consultation unaccompanied. Consult conducted via real-time audio/video technology by Kathy House M.S., TRIC[facility] in [facility] to the patient in Patient's Home. FAMILY HISTORY Madina Sena assisted with today's consultation by documenting the family history. A detailed family history was obtained from the patient and a pedigree was constructed. The pedigree will be saved as a scanned document and available for viewing under the Media tab of [employer]. Our risk assessment is based upon medical and family history information as provided by the patient, and may change in the future should new information be obtained. Pedigree by 01/08/2024 Relevant History: This is a somewhat small family. The patient has no affected maternal relatives, but the patient's mother only had one sibling and there are no maternal cousins. Father was diagnosed with esophageal cancer at age 81 and due to pneumonia at 81. The patient has an unaffected paternal auntand uncle and only two paternal cousins. The patient's paternal grandmother was first diagnosed with colon cancer in her 60s and had two occurrences. Paternal grandmother lived to be 108. There is noadditional reported paternal or maternal family history of cancer. To the patient's knowledge, no one in their family has had clinical germline genetic testing. The patient's maternal ancestry is [place]; the patient's paternal ancestry is Indian and [place]. There is no reported consanguinity. IMPRESSION/REPORT/PLAN PATIENT EDUCATION Note: the terms male/man and female/woman refer to sex assigned at . As a part of this appointment, the patient viewed the Hereditary Cancer Video for educational purposes. The topics covered in this video are summarized below. Cancer is a relatively common diagnosis in the general population, and the majority of these cancers are either sporadic or familial. Hereditary cancers are caused by mutations within a single cancersusceptibility gene. Families with hereditary cancers tend to have the following features: specifictypes of cancer in multiple close relatives and in several consecutive generations, early age at diagnosis (under 50), multiple primary or bilateral tumors, and/or a lack of environmental or other known risk factors. About 4% of men and women in the [place] will develop colorectal cancer during their lifetime. An individual's risk of developing colorectal cancer may be altered by multiple risk factors, including obesity, a diet high in red and processed meat, smoking, inflammatory bowel disease, abdominal radiation, a family history of colorectal cancer, and single-gene hereditary susceptibilities. It is believed that approximately 5%-10% of colorectal cancers are associated with a strong underlying hereditarysusceptibility, such as Peguero syndrome. We discussed that Peguero syndrome is an autosomal dominant condition associated with an increased risk for colorectal, endometrial, gastric, ovarian, and other cancers. Mutations in multiple genes can cause Peguero syndrome, including MLH1, MSH2, MSH6, PMS2, andEPCAM. The likelihood of Peguero syndrome is increased in individuals with colorectal cancer with oneor more of the following characteristics: diagnosed at younger than 50 years, who have a lower bodymass index, or who have a strong family history of Peguero-associated cancers. Additionally, mutations in other genes, including APC and MUTYH, among others, have been found to cause a hereditary susceptibility to polyposis and colorectal cancer. We discussed the cancer risks and medical management guidelines associated with mutations in these genes. We discussed how these mutations are inherited through families. We discussed how results of genetic testing may influence treatment of their colorectal cancer. A diagnosis of Peguero syndrome, particularly due to pathogenic variants in MLH1 or MSH2, may indicate anincreased risk for a metachronous colorectal cancer. A diagnosis of Peguero syndrome may affect surgical management of the patient's colorectal cancer. In addition, due to the risk for uterine and ovarian cancer in Peguero syndrome, women may consider concurrent hysterectomy with salpingo-oophorectomy at the time of their colon cancer surgery. Certain germline mutations (Peguero syndrome and possibly others) may affect recommendations for systemic therapy. Treatment decisions are deferred to the patient's care team. We discussed testing panels that cover many genes known or thought to be associated with hereditaryor familial cancer. Mutations in some of the genes account for rare hereditary cancer syndromes that include significant risks for cancer, while other genes are currently thought of as modifier genesthat potentially increase the risk for cancer. There are several limitations of these tests. The exact cancer risks for some of the genes that are included on these panels are not known at this pointin time. Therefore, it may be difficult to provide appropriate screening/medical management recommendations. Additionally, there is a significant chance that a variant of uncertain significance may be identified. Laws governing genetic discrimination were discussed. Risks, benefits, and limitations of genetic testing were discussed. Implications of possible test results, including positive, negative, and variant of uncertain significance, were discussed. RISK ASSESSMENT Mary's personal and family history is suggestive of a genetic predisposition to cancer. The patient does meet current National Comprehensive Cancer Network (NCCN) criteria for germline multi-gene panel testing (MGPT) for Peguero Syndrome and other hereditary cancer syndromes. The NCCN v1.2023 Genetic/Familial High- Risk Assessment: Colorectal guidelines state that MGPT identifies a pathogenic variant in 7.8% - 16.0% of patients with colorectal cancer. The NCCN panel carefully reviewed availableevidence to support upfront multigene panel testing and recommends consideration of germline multigene panel testing for patients whose personal history is not suspicious for a polyposis syndrome andwho were diagnosed with CRC age ?50 years. Genetic testing is warranted for the patient as results will help clarify future cancer risks and, thus, will help direct decisions regarding cancer screening and prevention. Because Peguero syndrome is associated with mutations in multiple genes, preliminary screening is helpful to determine if defective mismatch repair is present within the tumor and to clarify which genes should be further analyzed. Tumor screening has previously been performed and demonstrated intact protein expression. This is not suggestive of Peguero Syndrome. However, there is a 5-10% false negative rate for IHC testing, therefore germline genetic testing can still be considered. STACI Hernandez elected to pursue the CancerNext: Expanded panel through [employer] Marymatheus proceed with testing off of a cryopreserved stored blood sample. The laboratory will bill the patient's insurance directly and will contact the patient if the estimated out of pocket cost is greater than $100. Results will become available approximately 2-3 weeks from the release of testing. We will contact the patient with their test results when they become available. Screening and management recommendations will be made for the patient and their family members at the time of results disclosure. All results will first be shared with the patient via the patient online portal. If results are negative or a variant of uncertain significance is identified, the patient will be contacted with results via the patient portal or by mailed letter by our genetic counseling assistants. If a pathogenic variant is identified, the patient will first be notified of the result via the portal by a genetic counselor and then a follow-up virtual visit (zoom video call) or an in- person visit will be scheduled to review the results in more detail. If results are complex, the patient will also be offered anin-person or video return visit. If genetic test results are negative or a variant of uncertain significance is identified, the following screening recommendations would apply for Mary and their relatives. PERSONAL SCREENING It is important for the patient to continue to follow the cancer screening and treatment recommendations provided by their physicians. FAMILY SCREENING Individuals in this family with a first- or second-degree relative diagnosed with colorectal cancerremain at increased risk for colorectal cancer given their family history. According to National Comprehensive Cancer Network guidelines, individuals who have a first degree relative with colorectal cancer at any age are advised to begin colonoscopies at age 40 or approximately ten years younger than the earliest age of colon cancer diagnosis (whichever is earliest). Colonoscopy should be repeated every 5 years or earlier based on colonoscopy findings. Individuals with a second degree relative with colon cancer are advised to begin screening at age 45. Some combinations of affected first-,seco nd-, and third-degree relatives may increase risk sufficiently to alter screening guidelines. Colonoscopy intervals should be further modified based on personal and family history as well as on individual preferences. Factors that modify age to begin screening and colonoscopy intervals include: ageof individual undergoing screening; specifics of the family history, including number and age of onset of all affected relatives; size of family; completeness of the family history; participating in screening; and colonoscopy findings in family members. Final screening recommendations should be made by the managing physician. Individuals in this family with a first- or second-degree relative diagnosed with another type of cancer or tumor may remain at increased risk for these cancers and/or tumors given their family history. These individuals would be advised to share their family history with their care providers and discuss their screening options with their managing providers. These screening recommendations are based on national guidelines. Final screening recommendations should be deferred to the discretion of the managing physician. Other screening recommendations, suchas those made by the [place] [employer], do remain appropriate. It was a pleasure to meet Mary. Mary is certainly welcome to contact us with any additional questions. PATIENT EDUCATION: All of the above was discussed in detail with the patient who verbalized understanding. The patient's questions were answered. Total time: 8 minutes documented in this encounter Plan of Treatment Upcoming Encounters Date Type Department Care Team (Late st Contact Info) Description 01/15/2024 1:30 PM CDT Comprehensive Visit Department of Oncology in [place], [place] [address] [place] [phone] Lon Umanzor M.D. [address] [place] [phone] 01/15/2024 2:00 PM CDT Comprehensive Visit Division of Colon and Rectal Surgery in [place], [place] [address] [place] [phone] Viraj Styles M.B., B., MJade [address] [place] [phone] Scheduled Orders Name Type Priority Associated Diagnoses Orde r Schedule Not Applicable; [id number] [facility] Custom Panel - Miscellaneous Test Lab Add-On Malignant Neoplasm Of Rectum (HCC) Expected: 01/08/2024, Expires: 01/07/2025 documented as of this encounter Visit Diagnoses Diagnosis Malignant Neoplasm Of Rectum (HCC)- Primary documented in this encounter
--- OUTSIDE RECORDS SUMMARY | 2024-01-09 08:48 | XMS_ITS ---
Author Organization [facility] Address [address] [place] [address] Care Team Providers Care Medical Front Desk Specialist Name Role Phone Unavailable Unavailable Unavailable Surgery Details Not on file Complications Check Surgery Details section. Procedure Estimated Blood Loss Check Surgery Details section. Procedure Findings Check Surgery Details section. Procedure Specimens Taken Check Surgery Details section.
--- OUTSIDE RECORDS SUMMARY | 2024-01-09 08:48 | XMS_ITS | Encounter Summary ---
Author Organization [facility] Address [address] [place] [address] Care Team Providers Care Television Schedule Coordinator Name Role Phone Unavailable Primary Care Provider Unavailabl e Encounter Details Date Type Department Care Team (Latest Contact Info) Description 01/01/2024 Clinical Communication Division of Gastroenterology in [place], [place] [address] [place] [phone] Prescheduling, Provider Social History Tobacco Use Types Packs/Day Years Used Date Smoking Tobacco: Never Assessed [facility] Utilities Answer Date Recorded In the past 12 months has e [employer], gas, oil, or water [employer] threatened to shut off services in your [...] your living situation today? I have a [facility] place to live 01/03/2024 Sex and Gender [...] CDT Comprehensive Visit Department of Oncology in [place], [place] [address] [place] [address] Lon Umanzor M.D. [address] [place] [phone] 01/15/2024 2:00 PM CDT Comprehensive Visit Division of Colon and Rectal Surgery in [place], [place] [address] [place] [phone] Viraj Styles M.B., B.Veronica., MKristi. [address] [place] [phone] documented as of this encounter Visit Diagnoses Not on filedocumented in this encounter
--- OUTSIDE RECORDS SUMMARY | 2024-01-09 08:48 | XMS_ITS | Referral Summary ---
Author Organization [facility] Address [address] [place] [address] Care Team Providers Care Drywall Foreman Name Role Phone Unavailable Primary Care Provider Unavailabl e Source Comments Patient records contain information from all sites at [facility]. For routine questions regarding patient records, call [phone] during business hours, M-F 8:00 AM - 5:00 PM Central Time. Record requests for emergency care only can be directed to [phone] at any time.[facility] Encounters Date Type Department Care Team Description 01/08/2024 8:30 AM CDT Telemedicine Department of Medical Genetics in [place], [place] [address] [place] [address] Kathy Lemus M.D. Kathy House, M.S., CGC Malignant Neoplasm Of Rectum (HCC) (Primary Dx) 01/08/2024 8:00 AM CDT Telemedicine Department of Medical Genetics in [place], [place] [address] [place] [address] Kathy Lemus M.D. Madina Sena Malignant Neoplasm Of Rectum (HCC) 01/07/2024 Patient Outreach Department of Oncology in [place], [place] [address] [place] [address] Joanie Flores R.N. Record Review (Pre-MDC) 01/07/2024 9:20 AM CDT - 01/07/2024 11:59 PM CDT Hospital Encounter Department of Laboratory Medicine and Pathology, [facility], in [place], [place] [address] [place] [address] Kathy Lemus M.D. Malignant Neoplasm Of Rectum (HCC); Clinical Research Exam Discharge Disposition: Home or Self Care 01/07/2024 8:00 AM CDT Comprehensive Visit Division of Gastroenterology in [address] [phone] Kathy Lemus M.D. Malignant Neoplasm Of Rectum (HCC) (Primary Dx); Clinical Research Exam 01/03/2024 Orders Only Division of Gastroenterology in [address] [phone] Kathy Lemus M.D. Mass Adnexal (Primary Dx) 01/02/2024 3:40 PM CDT Ancillary Procedure Department of Radiology in [address] [phone] Kathy Lemus M.D. Malignant Neoplasm Of Rectum (HCC) 01/02/2024 Clinical Communication Division of Gastroenterology in [address] [phone] Kathy Lemus M.D. Neoplasia; Order Request 01/01/2024 Clinical Communication Division of Gastroenterology in [address] [phone] Prescheduling, Provider 01/01/2024 7:10 AM CDT Lab RST RO LMP [address] [place] [phone] Kathy Lemus M.D. Malignant Neoplasm Of Rectum (HCC) 01/01/2024 11:00 AM CDT Clinical Communication Virtual Review in [address] [phone] 12/31/2023 Clinical Communication Division of Gastroenterology in [address] [phone] Kathy Lemus M.D. Neoplasia; RN Summary 12/31/2023 Clinical Communication Division of Gastroenterology in [address] [phone] Kathy Lemus M.D. gih review (Kathy Lemus [...] Diagnosed Date Malignant Neoplasm Of Rectosigmoid 01/07/2024 Social History Tobacco Use Types Packs/Day Years Used Date Smoking Tobacco: Never Assessed [facility] Utilities Answer Date Recorded In the past 12 months has e [employer], gas, oil, or water [employer] threatened to shut off services in your [...] your living situation today? I have a [facility] place to live 01/08/2024 Sex and [...] CDT Comprehensive Visit Department of Oncology in [address] [phone] Lon Umanzor M.D. [address] [place] [phone] 01/15/2024 2:00 PM CDT Comprehensive Visit Division of Colon and Rectal Surgery in [address] [phone] Viraj Styles M.B., B., M.[place] [address] [place] [phone] Medical Devices Implanted Type Area Assistant Real Estate Manager Device Identifier Shelf Expiration Date Model / Serial / Lot Hardware E.G. Pins/Screws/Ro ds-08/28/2016 Implanted:08/15 (Quantity not on file) Hardware e.g. pins/screws/r ods Hip Procedures Procedure Name Priority Date/Time Associated Diagnosis Comments CRYOPRESERVATION FOR MOLEC STUDIES Routine 01/07/2024 9:57 AM CDT Malignant Neoplasm Of Rectum (HCC) [facility] RESEARCH ORDER, B Routine 9:56 [...] is not a DNA banking service. If rat exterminator, guaranteed specimen storage is required, DNA banking [...] M.D. LAB GENETIC TESTING Performing Organization Address [facility]/ZIP Co de Phone Number [facility] [address] [place] [address] [address] * [facility] Research, Blood (01/07/2024 9:56 AM CDT) Number of Specimens 9 01/07/2024 9:56 AM CDT HS Blood (Blood, Venous) 01/07/2024 9:56 AM CDT 01/07/2024 9:56 AM CDT Kathy Lemus M.D. LAB RESEARCH NO RES ULT ROUTING Performing Organization Address [facility] Co de Phone Number [facility] 200 [place] [address], [address] [address] * Interpretation of Outside MR Abdomen and [...] incompletely evaluated. Recommendultrasound correlation. Kathy Lemus M.D. [facility] [place] PROCEDURES * MR PELVIS RECTUM WWO-Outside MR Body (01/02/2024 8:35 AM CDT) Narrative [facility] - 01/02/2024 12:52 PM CDT This order [...] Not In System IMG MRI PROCEDURE S [facility] NA * Outside CT Body (12/26/2023 12:00 AM CDT) 12/27/2023 12:3 6 PM CDT Addenda Addendum by [employer], Outside on 12/27/2023 12:36 PM CDT BELOW REPORT RECEIVED BY [facility] ON 01/07/2024 11:19:53 [id number] For Patients: ??As a result of the 21st Century Cures [...] Bishnu Valerio RELEASED BY KATHLEEN Addendum by [employer], Outside on 12/27/2023 12:36 PM CDT BELOW REPORT RECEIVED BY [facility] ON 01/07/2024 11:17:33 [id number] For Patients: ??As a result of the [...] Bishnu Valerio RELEASED BY KATHLEEN Addendum by [employer], Outside on 12/27/2023 12:36 PM CDT BELOW REPORT RECEIVED BY [facility] ON 01/07/2024 11:16:43 [id number] For Patients: ??As a result of the 21st Century Cures [...] 7:29 PM CDT DTL Material Received A. [id number]: Ascending colon, sigmoid polyp, rectal-sigmoid ? 9 stained slides 01/07/2024 7:29 PM CDT DTL Interpretation FINAL DIAGNOSIS Colon and rectum, biopsy ([id number]; 12/17/2023): ? A. ??Colon, ascending, polypectomy: ??Tubular [...] at the referring institution and reviewed at [facility]. 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 Digital imaging was used in the diagnostic assessment of this case. 01/07/2024 7:29 PM CDT DTL Varies 12/17/2023 01/03/2024 2:3 8 PM CDT Kathy Lemus M.D. LAB SURG PATH ORDER [facility] [address] [place] [address], [facility] DTL [address] [place] [address] from Last 3 Months
--- OUTSIDE RECORDS SUMMARY | 2024-01-09 08:48 | XMS_ITS | Clinical Summary ---
Author Organization [employer] [facility] Address [place], [place] [address] Care Team Providers Care Apparel Sales Leader Name Role Phone Cata Cadena Primary Care [...] Description 01/02/2024 8:15 AM CDT Ancillary Procedure [facility] [address] [place] [address] 01/02/2024 Travel 01/01/2024 7:50 AM CDT Office Visit [address] [address] Cata Cadena PA Physical (53 years old) 12/31/2023 1:30 PM CDT Office Visit [facility] [address] [place] [address] Gris Squires MD Consult (Malignant neoplasm of colon referred by Dr. Mena) 12/31/2023 Travel 12/27/2023 9:20 AM CDT Ancillary Procedure [facility] [address] [place] [address] 12/26/2023 7:30 AM CDT Ancillary Procedure [facility] [address] [place] [address] 12/26/2023 Travel 12/20/2023 8:30 AM CDT Orders Only [address] [place] [address] Lab, [place] [facility] 12/20/2023 Travel 12/19/2023 Telephone [facility] [address] [place] [address] Donavon Mena MD Results 12/17/2023 10:30 AM CDT Office Visit [facility] [address] [place] [address] Donavon Mena MD Procedure (Colonoscopy) 12/17/2023 Travel 12/11/2023 Telephone [facility] [address] [facility] [address] Donavon Mena MD Appointment Reminder (Colonoscopy 12/17/23) from Last 3 Months Immunizations Name Administration Dates Next Due COVID-19 vaccine (Tipjoy 30mcg/0.3mL) P F, MDV 08/27/2020,08/06/2020 Influenza, IIV4 05/16/2020 Influenza,CCIIV4 PRESERV FREE 05/05/2022 Td (Age >=7 Years) 01/20/2003,07/04/1995 Tdap 08/10/2016,11/18/2012 Zoster (Shingrix-RZV, recombinant) 10/06/2022, Family History Medical History Relation Name Comments Esophageal cancer Father Heart attack Father Hyperlipidemia Father htn Hypertension Father Heart Disease Maternal Grandfather deceas ed in 50s from [place] Thyroid Disease Maternal Grandmother Hypertension Mother Cancer-colon [...] 12/31/2024 01/01/2024, 12/24/2022, 10/05/2022, Additional history exists Tetanus booster 08/10/2026 08/10/2016, 0501/2013, 01/20/2003, Additional history exists Lipids for age 45-75 12/19/2028 12/20/2023, 12/24/2022, 12/19/2021, Additional history exists Pap test for age 21-65 12/31/2028 , 10/19/2020, 10/19/2020, Additional history exists Tdap Completed 08/10/2016, 11/18/2012 Zoster (shingles) series for age 50+ Completed 10/06/2022, 06/03/2022 Procedures Procedure Name Priority Date/Time Associated Diagnosis Comments MR PELVIS RECTUM WWO SUNDEEP 01/02/2024 10:16 AM CDT Rectal cancer (HC) HPV THIN PREP Routine 01/01/2024 8:31 AM CDT Screening for cervical cancer XR MAMMO BILAT SCREENING Routine 12/27/2023 9:26 [...] 10:26 AM CDT History of colon polyps from Last 3 Months Results * MR PELVIS RECTUM WWO (01/02/2024 [...] (Electronically Signed) Gris Squires MD MR * HPV HIGH RISK (01/01/2024 8:31 AM CDT) TYPE 16 Negative Negative 01/06/2024 12:34 PM CDT [facility] TYPE 18 Negative Negative 01/06/2024 12:34 PM CDT [facility] OTHER HIGH RISK TYPES Negative Negative 01/06/2024 12:34 PM CDT [facility] Other (Cervical) Non-Blood / Unknown 01/01/2024 8:31 AM CDT 01/02/2024 2:38 PM CDT Narrative [facility] - 01/06/2024 12:34 PM CDT HPV types 16, 18, 31, 33, 35, 39, 45, 51, 52, 56, 58, 59, 66 and 68 DNA were undetectable or below the pre-set threshold. Methodology: [employer] [place] 4800 HPV Test Cata FISHMAN MICROBIOLOGY [facility] [address] [place] [address], * XR MAMMO BILAT SCREENING (12/27/2023 9:26 [...] health care provider. XR MAMMO BILAT SCREENING [[id number]] CLINICAL HISTORY: ??This is an asymptomatic 53 y.o. patient. INDICATION FOR EXAM: Mammogram Screening. TECHNIQUE: CC & MLO views were obtained. ??This study was evaluated with the assistance of Computer-Aided Detection. COMPARISON FILM: Yes 12/24/22 [facility] 12/19/21 [facility] FINDINGS: ??There are scattered areas of fibroglandular [...] 11.0 thou/cu mm 12/20/2023 8:41 AM CDT [facility] RED BLOOD COUNT 4.28 4.00 - 5.20 mil/cu mm 12/20/2023 8:41 AM CDT [facility] HEMOGLOBIN 13.6 12.0 - 16.0 g/dL 12/20/2023 8:41 AM CDT [facility] HEMATOCRIT 39.5 33.0 - 51.0 % 12/20/2023 8:41 AM CDT [facility] MCV 92 80 - 100 fL 12/20/2023 8:41 AM CDT [facility] MCH 31.8 26.0 - 34.0 pg 12/20/2023 8:41 AM CDT [facility] MCHC 34.4 32.0 - 36.0 g/dL 12/20/2023 8:41 AM CDT [facility] RDW 13.2 11.5 - 15.5 % 12/20/2023 8:41 AM CDT [facility] PLATELET COUNT 296 140 - 440 thou/cu mm 12/20/2023 8:41 AM CDT [facility] MPV 9.0 6.5 - 11.0 fL 12/20/2023 8:41 AM CDT [facility] % NEUT 32.1 % 12/20/2023 8:41 AM CDT [facility] % LYMPH 55.8 % 12/20/2023 8:41 AM CDT [facility] % MONO 8.8 % 12/20/2023 8:41 AM CDT [facility] % EOS 2.7 % 12/20/2023 8:41 AM CDT [facility] % BASO 0.6 % 12/20/2023 8:41 AM CDT [facility] ABSOLUTE NEUTROPHILS 1.6(L) 1.7 - 7.0 thou/cu mm 12/20/2023 8:41 AM CDT [facility] ABSOLUTE LYMPHOCYTES 2.9 0.9 - 2.9 thou/cu mm 12/20/2023 8:41 AM CDT [facility] ABSOLUTE MONOCYTES 0.5 <0.9 thou/cu mm 12/20/2023 8:41 AM CDT [facility] ABSOLUTE EOSINOPHILS 0.1 <0.5 thou/cu mm 12/20/2023 8:41 AM CDT [facility] ABSOLUTE BASOPHILS 0.0 <0.3 thou/cu mm 12/20/2023 8:41 AM CDT [facility] Blood BLOOD SPECIMEN / Unknown Venipuncture / Unknown 12/20/2023 8:31 AM CDT 12/20/2023 8:31 AM CDT Donavon Mena MD HEMATOLOGY Performing Organization Address City/State/[facility] Co de Phone Number [facility] [address] [place] [address], * (ABNORMAL) LIPID PANEL W REFLEX MEASURED LDL (12/20/2023 8:31 AM CDT) CHOLESTEROL,TOTAL 218(H) 100 - 199 mg/dL 12/23/2023 8:17 AM CDT [facility] Comment: Cholesterol, Total Reference Ranges Desirable <200 mg/dL Borderline 200-239 mg/dL High >=240 mg/dL TRIGLYCERIDES 81 <150 mg/dL 12/23/2023 8:17 AM CDT [facility] HDL CHOLESTEROL 68 >40 mg/dL 8:17 AM CDT [facility] NON-HDL CHOLESTEROL 150(H) <145 mg/dl 12/23/2023 8:17 AM CDT [facility] CHOL/HDL RATIO 3.21 <4.50 12/23/2023 8:17 AM CDT [facility] LDL CHOLESTEROL 134(H) <=130 mg/dL 12/23/2023 8:17 AM CDT [facility] VLDL CHOLESTEROL 16 <=30 mg/dL 12/23/2023 8:17 AM CDT [facility] PROVIDER ORDERED STATUS RANDOM 12/23/2023 8:17 AM CDT [facility] Blood BLOOD SPECIMEN / Unknown Venipuncture / Unknown 12/20/2023 8:31 AM CDT 12/20/2023 8:31 AM CDT Cata FISHMAN CHEMISTRY Performing Organization Address City/State/[facility] Co de Phone Number [facility] [address] [place] [address], * CEA (12/20/2023 8:31 AM CDT) CEA 3.2 ng/mL 12/20/2023 7:43 PM CDT [facility] Blood BLOOD SPECIMEN / Unknown Venipuncture / Unknown 12/20/2023 8:31 AM CDT 12/20/2023 8:31 AM CDT Narrative [facility] - 12/20/2023 7:43 PM CDT ?CEA [...] prior to retesting. Donavon Mena MD CHEMISTRY [facility] [address] [place] [address], * COMP METABOLIC PANEL (12/20/2023 8:31 AM CDT) SODIUM 138 136 - 145 mmol/L 12/20/2023 7:43 PM CDT [facility] POTASSIUM 4.3 3.5 - 5.1 mmol/L 12/20/2023 7:43 PM CDT [facility] CHLORIDE 101 98 - 107 mmol/L 12/20/2023 7:43 PM CDT [facility] CO2,TOTAL 26 22 - 29 mmol/L 12/20/2023 7:43 PM [facility] ANION GAP 11 5 - 18 12/20/2023 7:43 PM [facility] GLUCOSE 86 70 - 99 mg/dL 12/20/2023 7:43 PM [facility] CALCIUM 9.9 8.6 - 10.0 mg/dL 12/20/2023 7:43 PM [facility] BUN 7 6 - 20 mg/dL 12/20/2023 7:43 PM [facility] CREATININE 0.53 0.50 - 0.90 mg/dL 12/20/2023 7:43 PM [facility] BUN/CREAT RATIO 13 10 - 20 7:43 PM [facility] eGFR >90 >90 mL/min/1.7 3m2 12/20/2023 7:43 PM [facility] Comment:As of 2021, eG FR is calculated by the CKD-EPI creatinine equation without race adjustment. ??eGFR can be influenced by muscle mass, exercise, and diet. ??The reported eGFR is an estimation only and is only applicable if the renal function is stable. ALBUMIN 4.8 4.0 - 4.9 g/dL 12/20/2023 7:43 PM [facility] PROTEIN,TOTAL 7.6 6.0 - 8.0 g/dL 12/20/2023 7:43 PM [facility] BILIRUBIN,TOTAL 0.2 0.0 - 1.2 mg/dL 12/20/2023 7:43 PM [facility] ALK PHOSPHATASE 77 35 - 104 IU/L 12/20/2023 7:43 PM [facility] ALT (SGPT) 30 10 - 35 IU/L 12/20/2023 7:43 PM [facility] AST (SGOT) 33 10 - 35 IU/L 12/20/2023 7:43 PM [facility] Blood BLOOD SPECIMEN / Unknown Venipuncture / Unknown 12/20/2023 8:31 AM CDT 12/20/2023 8:31 AM CDT Donavon Mena MD CHEMISTRY [facility] [address] [place] [address], * BASIC METABOLIC PANEL (12/20/2023 8:31 AM CDT) Pathologist [facility] SODIUM 138 136 - 145 mmol/L 12/23/2023 7:33 AM CDT [facility] POTASSIUM 4.3 3.5 - 5.1 mmol/L 12/23/2023 7:33 AM CDT [facility] CHLORIDE 101 98 - 107 mmol/L 12/23/2023 7:33 AM CDT [facility] CO2,TOTAL 26 22 - 29 mmol/L 12/23/2023 7:33 AM CDT [facility] ANION GAP 11 5 - 18 12/23/2023 7:33 AM CDT [facility] GLUCOSE 86 70 - 99 mg/dL 12/23/2023 7:33 AM T [facility] CALCIUM 9.9 8.6 - 10.0 mg/dL 12/23/2023 7:33 AM CDT [facility] BUN 7 6 - 20 mg/dL 12/23/2023 7:33 AM T [facility] CREATININE 0.53 0.50 - 0.90 mg/dL 12/23/2023 7:33 AM T [facility] BUN/CREAT RATIO 13 10 - 20 7:33 AM T [facility] eGFR >90 >90 mL/min/1.7 3m2 12/23/2023 7:33 AM T [facility] Comment: As of 2021, eGFR [...] 12/20/2023 8:31 AM CDT Cata FISHMAN CHEMISTRY [facility] [address] [place] [address], * PATH TISSUE EXAM (12/17/2023 11:23 AM CDT) Case Report Pathology Report ?Case: [id number] ? Authorizing Provider: ??Donavon Mena MD ?? Collected: ? 12/17/2023 1123 ? Ordering Location: ? [facility] ?? Received: ?12/17/2023 1550 ? Clinic ? Pathologist: ? Norberto Echeverria, ? MD ? Specimens: ?? A) - Ascending Colon Polyp ? B) - Sigmoid Polyp, @35 cm ? C) - Sigmoid Polyp, @20 cm ? D) - Rectal-Sigmoid Biopsy, mass ? 4 2:35 PM CDT [facility] Amendment 12/19/2023 - DNA mismatch repair enzyme IHC added, see final diagnosis and synoptic sections. 4 2:35 PM CDT [facility] Final Diagnosis A) COLON, ASCENDING, [...] comment and synoptic sections 4 2:35 PM T [facility] Amendment electronically signed by Norberto Echeverria MD on 12/19/2023 at 2:35 PM Comment D) Dr. Echeverria discussed the case with Dr. Mena on 12/19/2023. This case was seen in consultation with Dr. Ashley. Please contact us with any questions ([facility] GI pathology service [phone]). Formalin-fixed, paraffin-embedded tissue is available for ancillary studies, to request please contact the [facility] ([phone]). Neoplastic tissue available for ancillary studies: ?? [facility] NGS testing: ?- FFPE tissue blocks: D1 [...] is strongly suspected clinically please contact us ([facility] GI Pathology Service [phone]). Rarely there can be a functionally significant mutation that leaves the protein intact or other heritable reasons for this finding. 4 2:[address] [facility] Clinical Information Ms. Gaytan is a 53 y.o. undergoing high risk colon cancer surveillance due to a personal history of adenomas. Colonoscopy reveals a partially obstructing tumor in the rectosigmoid colon. Additional polyps were identified in the ascending and sigmoid colon. 4 2:[address] [facility] Gross Description A) Received in formalin [...] designated D. Renae Mata 12/18/2023 9:10 AM 2:[address] [facility] Microscopic Description The final diagnosis is based on microscopic examination of appropriate sections of all specimens. 2:[address] [facility] SYNOPTIC REPORTING Colon and Rectum Biomarker [...] probability of MSI-H 4 2:35 PM CDT [facility] Additional Information Interpreted at [facility] - [address] [place] [address] [place] [address] 4 2:35 PM CDT [facility] Other (Ascending Colon Polyp) Non-Blood / Unknown 12/17/2023 11:23 AM CDT 12/17/2023 3:50 PM CDT Specimen (specimen) (Sigmoid Polyp) Non-Blood / Unknown 12/17/2023 11:27 AM CDT 12/17/2023 3:50 PM CDT Specimen (specimen) (Sigmoid Polyp) 12/17/2023 11:31 AM CDT 12/17/2023 3:50 PM CDT Specimen (specimen) (Rectal-Sigmoid Biopsy) 12/17/2023 11:35 AM CDT 12/17/2023 3:50 PM CDT Donavon Mena MD PATHOLOGY/CYTOLOG Y [facility] [address] [place] [address], * COLONOSCOPY (12/17/2023 10:30 AM CDT) 12/17/2023 10:3 0 AM CDT Narrative Transcriptions Donavon Mena MD - 12/17/2023 11:50 AM CDT Patient Name: Mary Gaytan Procedure Date: 12/17/2023 Gender: Female Date of : 1970 Admit Type: Outpatient Procedure: Colonoscopy Proceduralist: Donvaon Mena MD , Jennifer Cruz (Nurse), Joanie [...] candidate for conscious sedation. The endoscope [id number] was passed through the anus andadvanced to [...] 10:30 AM Procedure Code(s): --- Professional --- 09302, Colonoscopy, flexible; with removalof tumor(s), polyp(s), or other lesion(s) bysnare technique 61621, 59, Colonoscopy, flexible; withbiopsy, single or multiple Diagnosis Code(s): --- Professional --- D12.2, Benign neoplasm of ascending colon D12.5, Benign neoplasm of sigmoid colon D49.0, Neoplasm of unspecified behavior of digestive system K56.690, Other partial intestinalobstruction Z86.010, Personal history of colonicpolyps CPT copyright 2022 [employer]. All rights reserved. The codes documented in this report are preliminary and upon machine rope maker reviewmay be revised to meet current compliance requirements. Scope In: 11:09:56 AM Scope Withdrawal Time 0 hours 18 minutes 2 seconds Scope Out: 11:37:51 AM Donavon Mena MD PROCEDURE ORD from Last 3 Months Care Teams Apparel Sales Leader Relationship Specialty Start Date End Date Cata Cadena PA [address] [place] [address] PCP - General Physician Garment Presser 10/19/20
--- OUTSIDE RECORDS SUMMARY | 2024-01-09 08:48 | XMS_ITS | Encounter Summary ---
Author Organization [facility] Address [address] [place] [address] Care Team Providers Care Upfitter Name Role Phone Unavailable Primary Care Provider Unavailabl e Reason for Visit * Reason Onset Date Comments Record Review 01/07/2024 Pre-MDC Encounter Details Date Type Department Care Team (Late st Contact Info) Description 01/07/2024 Patient Outreach Department of Oncology in [place], [place] [address] [place] [address] Joanie Flores RVioletta. [address] [place] [address] Record Review (Pre-MDC) Social History Tobacco Use Types Packs/Day Years Used Date Smoking Tobacco: Never Assessed [facility] Utilities Answer Date Recorded In the past 12 months has e electric, gas, oil, or water [employer] threatened to shut off services in your [...] your living situation today? I [facility] 01/08/2024 Sex and [...] CDT Comprehensive Visit Department of Oncology in [place], [place] [address] [place] [address] Lon Umanzor M.D. [address] [place] [phone] 01/15/2024 2:00 PM CDT Comprehensive Visit Division of Colon and Rectal Surgery in [place], [place] [address] [place] [phone] Viraj Styles M.B., B.Ch., M.D. [address] [place] [phone] documented as of this encounter Visit Diagnoses Not on filedocumented in this encounter
--- OUTSIDE RECORDS SUMMARY | 2024-01-09 08:48 | XMS_ITS | Encounter Summary ---
Author Organization [facility] Address [address] [place] [address] Care Team Providers Care Ripening Room Attendant Name Role Phone Unavailable Primary Care Provider Unavailabl e Reason for Referral * Outpatient (Routine) - Closed Specialty Diagnoses / Procedures Referred By Contac t Referred To Contact Clinical Genomics Diagnoses Malignant Neoplasm Of Rectum (HCC) Kathy Lemus M.D. [address] [place] [phone] [facility] Referral ID Status Reason Start Date Expiration Date Visits Re quested Visits Authorized [id number] Closed 12/31/2023 07/01/2025 1 1 * Outpatient (Routine) - Authorized Specialty Diagnoses / Procedures Referred By Contac t Referred To Contact Diagnoses Malignant Neoplasm Of Rectum (HCC) Procedures ECG 12 Lead Kathy Lmeus M.D. [address] [place] [address] [facility] Referral ID Status Reason Start Date Expiration Date V isits Requested Visits Authorized [id number] Authorized 12/31/2023 12/30/2024 1 1 * Outpatient (Routine) - Authorized Specialty Diagnoses / Procedures Referred By Contac t Referred To Contact Radiation Oncology Diagnoses Malignant Neoplasm Of Rectum (HCC) Kathy Lemus M.D. [address] [place] [address] [facility] Referral ID Status Reason Start Date Expiration Date V isits Requested Visits Authorized [id number] Authorized 12/31/2023 07/01/2025 1 1 * Outpatient (Routine) - Authorized Specialty Diagnoses / Procedures Referred By Contac t Referred To Contact Medical Oncology / Oncology Diagnoses Malignant Neoplasm Of Rectum (HCC) Kathy Lemus M.D. [address] [place] [phone] [facility] Referral ID Status Reason Start Date Expiration Date V isits Requested Visits Authorized [id number] Authorized 12/31/2023 07/01/2025 1 1 * Outpatient (Routine) - Authorized Specialty Diagnoses / Procedures Referred By Contac t Referred To Contact Colon and Rectal Surgery Diagnoses Malignant Neoplasm Of Rectum (HCC) Kathy Lemus M.D. [address] [place] [address] [facility] Referral ID Status Reason Start Date Expiration Date V isits Requested Visits Authorized [id number] Authorized 12/31/2023 07/01/2025 1 1 Reason for Visit * Appointment Request (Routine) - Closed Specialty Diagnoses / Procedures Referred By Contac t Referred To Contact Colon and Rectal Surgery Diagnoses Malignant Neoplasm Of Rectum (HCC) Gris Squires M.D. [address] [place] [address] Referral ID Status Reason Start Date Expiration Date Visits Re quested Visits Authorized [id number] Closed 12/31/2023 12/30/2024 1 1 Encounter Details Date Type Department Care Team (Latest Contact Info) Description 01/07/2024 8:00 AM CDT Comprehensive Visit Division of Gastroenterology in [place], [place] [address] [place] [phone] [place] [address] Malignant Neoplasm Of Rectum (HCC) (Primary Dx); Clinical Research Exam Social History Tobacco Use Types Packs/Day Years Used Date Smoking Tobacco: Never Assessed [facility] Utilities Answer Date Recorded In the past [...] your living situation today? I have a [facility] place to live 01/08/2024 Sex and Gender Information Value Date Recorded Sex Assigned at Female 01/01/2024 10:17 AM CDT Gender Identity Female 01/01/2024 10:17 AM CDT Sexual Orientation Straight 01/01/2024 10 :17 AM CDT documented as of this encounter Last Filed Vital Signs Vital Sign Reading [...] Mass Index 24.26 01/07/2024 7:45 AM CDT documented in this encounter Consult Notes * Kathy Lemus M.D. - 01/07/2024 8:00 AM CDT SUBJECTIVE This was a 60-minute visit, over 10 minutes prior to the visit in reviewing outside records and theremainder in counseling and coordination of care. REASON FOR CONSULT Partially obstructing rectosigmoid mass. HISTORY OF PRESENT ILLNESS Mrs. Gaytan is a 53-year-old woman who went for her scheduled screening colonoscopy. She had had her first colonoscopy in 2020 and had had 5 tubular adenomas removed. She had her colonoscopy December 17, 2023, and had had a 3-mm ascending colon, two 3- to 4-mm sigmoid colon, and one 4-mm distal sigmoid colon tubular adenomas removed. Unfortunately, at about 15 cm from the anal verge, there was a partially obstructing mass in the rectosigmoid. There were images available in the record, and this showed this partially obstructing mass that was encompassing about a third of the lumen. 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 She had had an MRI of the rectum performed in [place], and Dr. Roth had reviewed it here and seen that this lesion was 4.2 cm in craniocaudal length and was an annular lesion. He described it as being 16 cm from the anal verge, and it was 13 cm to the top of the anorectal junction. It was described as being above the anterior peritoneal reflection and below the sacral promontory and the top of the pubic symphysis. It was described as a T1-2 tumor confined to the rectal wall. There w as no EMVI noted, and there were no tumor deposits noted. There were no visible lymph nodes and no extra mesorectal lymph nodes noted, and the 4.4-cm left adnexal cystic lesion was present. The tumorhad already been assessed for a mismatch repair and was found to have a proficient mismatch repair,and that specimen has not yet been reviewed here but is in process of being reviewed here. 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 They currently live at home together. His main struggle is that he has apraxia. 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 She currently describes being able to avoid obstructive symptoms, and she will continue to use a stoolsoftener and then instead of using a laxative will use MiraLAX. I have reviewed her PFH and CVI including: FAMILY HISTORY Her paternal grandmother had colorectal cancer first in her 40s and 50s and actually had it 2 timesand lived to her 100s. Her dad had esophageal cancer. SOCIAL HISTORY She is a never tobacco user. She never vaped, and she drinks alcohol rarely. MEDICAL HISTORY She has had her left total hip arthroplasty in 2017 and then her right total hip arthroplasty in 2020, and she has familial genetic arthritis. She also has hypertension. She has 2 sons and then also is a step-mom. OBJECTIVE PHYSICAL EXAMINATION Vital Signs: Height is 173 cm. Weight is 72.6 kg. Pulse 79. Blood pressure is 171/105. She states she normally has a systolic that is 120-130, and she measures that regularly. General: This is a pleasant-appearing woman in no apparent distress. HEENT: Mallampati II. No posterior, cervical, submandibular, or supraclavicular adenopathy. No carotid bruits. No thyromegaly. No thyroid nodules noted. Heart: Regular rhythm without murmurs, gallops, or rubs. Lungs: Clear to auscultation. Abdomen: Soft and nontender with no hepatosplenomegaly. No inguinal adenopathy. Digital Rectal Exam: Decreased sphincter tone and squeeze with decreased descent. ASSESSMENT / PLAN #1 Rectosigmoid tumor This tumor is described on the MRI as being in the upper third of the rectum and being a T1-T2 lesion. It is annular and most likely hopefully will be able to be managed with surgically. For Mrs. Gaytan, it is very important for her to be able to have a treatment which will allow her to maintain asbest she can being able to help care for her ; and so that will be a big part of the consideration for her care. She will be seen in Genetics and is interested in doing this as a video visit. Traveling back and forth here is somewhat challenging; and so considering the ovarian lesion, she isgoing to do all that follow-up near her home with her own SURGICAL AIDES TEACHER because that will simplify that pro cess as well; and she will do her genetics consult as a video consult as well. Currently, [facility] is [facility] on January 14. Kathy Lemus M.D. CT CT Job ID: [id number]/ documented in this encounter Plan of Treatment Upcoming Encounters Date Type Department Care Team (Late st Contact Info) Description 01/15/2024 1:30 PM CDT Comprehensive Visit Department of Oncology in [place], [place] [address] [place] [phone] Lon Umanzor M.D. [address] [place] [phone] 01/15/2024 2:00 PM CDT Comprehensive Visit Division of Colon and Rectal Surgery in [place], [place] [address] [place] [phone] Viraj Styles M.B., B.Ch., M.Victorino. [address] [place] [phone] Scheduled Orders Name Type Priority Associated Diagnoses Orde r Schedule ECG 12 Lead ECG Routine Malignant Neoplasm Of Rectum (HCC) Expected: 01/07/2024, Expires: 04/01/2025 Scheduled Referrals Name Type Priority Associated Diagnoses Order Schedule Colon and Rectal Surgery - Colon or rectal cancer consult (consult) Outpatient Referral Routine Malignant Neoplasm Of Rectum (HCC) Expected: 01/07/2024, Expires: 04/01/2025 Oncology - Colon or rectal cancer consult (consult) Outpatient Referral Routine Malignant Neoplasm Of Rectum (HCC) Expected: 01/07/2024, Expires: 04/01/2025 Radiation Oncology - Rectal cancer consult (consult) Outpatient Referral Routine Malignant Neoplasm Of Rectum (HCC) Expected: 01/07/2024, Expires: 04/01/2025 Clinical Genomics - Cancer clinic counseling consult (clinic) Outpatient Referral Routine Malignant Neoplasm Of Rectum (HCC) Expected: 01/07/2024, Expires: 04/01/2025 documented as of this encounter Results * Cryopreservation for Molecular [...] is not a DNA banking service. If assisted, guaranteed specimen storage is required, DNA banking [...] M.D. LAB GENETIC TESTING Performing Organization Address City/[facility]/ZIP Co de Phone Number [facility] [address] DTL [address] [place] [address] * Misc Research, Blood (01/07/2024 9:56 AM CDT) Number of Specimens 9 01/07/2024 9:56 AM CDT HSS Blood (Blood, Venous) 01/07/2024 9:56 AM CDT 01/07/2024 9:56 AM CDT Kathy Lemus M.D. LAB RESEARCH NO RES ULT ROUTING Performing Organization Address [facility]/ZIP Co de Phone Number [address] [place] [address] * Pathology Review of Outside Material (12/17/2023 12:00 AM CDT) 01/07/2024 7:29 PM CDT DTL Report electronically signed by Naun Agudelo M.D. I verify that I have examined all relevant slides/materials for the specimen(s) and rendered or confirmed the diagnosis. 01/07/2024 7:29 PM CDT DTL Material Received A. [id number]: Ascending colon, sigmoid polyp, rectal-sigmoid ? 9 stained slides 01/07/2024 7:29 PM CDT DTL Interpretation FINAL DIAGNOSIS Colon and rectum, biopsy ([id number]; 12/17/2023): ? A. ??Colon, ascending, polypectomy: ??Tubular [...] at the referring institution and reviewed at [facility]. 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 Digital imaging was used in the diagnostic assessment of this case. 01/07/2024 7:29 PM CDT DTL Varies 12/17/2023 01/03/2024 2:3 8 PM CDT Kathy Lemus M.D. LAB SURG PATH ORDER [facility] [address] [place] [address], [facility] DTL [address] [place] [address] documented in this encounter Visit Diagnoses Diagnosis Malignant Neoplasm Of Rectum (HCC)- Primary Clinical Research Exam documented in this encounter
--- OUTSIDE RECORDS SUMMARY | 2024-01-09 08:48 | XMS_ITS | Encounter Summary ---
Author Organization [facility] Address [address] [place] [address] Care Team Providers Care Compressor Engineer Name Role Phone Unavailable Primary Care Provider Unavailabl e Reason for Visit * Outpatient (Routine) - Closed Specialty Diagnoses / Procedures Referred By Ashish mendiola Referred To Contact Clinical Genomics Diagnoses Malignant Neoplasm Of Rectum (HCC) Kathy Lemus M.D. [address] [place] [phone] [facility] Referral ID Status Reason Start Date Expiration Date Visits Re quested Visits Authorized [id number] Closed 12/31/2023 07/01/2025 1 1 Encounter Details Date Type Department Care Team (Late st Contact Info) Description 01/08/2024 8:00 AM CDT Telemedicine Department of Medical Genetics in [place], [place] [address] [place] [phone] Kathy Lemus M.D. [address] [place] [phone] Madina Sena Malignant Neoplasm Of Rectum (HCC) Social History Tobacco Use Types Packs/Day Years Used Date Smoking Tobacco: Never Assessed [facility] Utilities Answer Date Recorded In the past [...] your living situation today? I have a [facility] place to live 01/08/2024 Sex and Gender Information Value Date Recorded Sex Assigned at Female 01/01/2024 10:17 AM CDT Gender Identity Female 01/01/2024 10:17 AM CDT Sexual Orientation Straight 01/01/2024 10 :17 AM CDT documented as of this encounter Progress Notes * Madina Sena - 01/08/2024 8:00 AM CDT REFERRAL Kathy Lemus M.D. CHIEF COMPLAINT/PURPOSE OF VISIT Obtain and construct family history for clinical assessment. HISTORY OF PRESENT ILLNESS Please see [facility]'s Clinical Genomics consultation for further details. FAMILY HISTORY Per the referral of Kathy Lemus M.D., a comprehensive family history was obtained and constructed for the Clinical Genomics consult. The complete family history has been saved as a scanned document and is available for viewing. The patient will be seen in Clinical Genomics by [facility]. Please see the consult note regarding pertinent findings of the family history in relationto the differential diagnosis and clinical assessment. Total time: 15 minutes Consult conducted via real-time audio/video technology by Madina Sena in [facility] to the patient in Patient's Home documented in this encounter Plan of Treatment Upcoming Encounters Date Type Department Care Team (Late st Contact Info) Description 01/15/2024 1:30 PM CDT Comprehensive Visit Department of Oncology in [place], [place] [address] [place] [phone] Lon Umanzor M.D. [address] [place] [phone] 01/15/2024 2:00 PM CDT Comprehensive Visit Division of Colon and Rectal Surgery in [place], [place] [address] [place] [phone] Viraj Styles M.B., B.Ch., M.Victorino. [address] [place] [phone] documented as of this encounter Visit Diagnoses Diagnosis Malignant Neoplasm Of Rectum (HCC) documented in this encounter
--- OUTSIDE RECORDS SUMMARY | 2024-01-09 08:48 | XMS_ITS | Encounter Summary ---
Author Organization [facility] Address [address] [place] [address] Care Team Providers Care Nail Professional Name Role Phone Unavailable Primary Care Provider Unavailabl e Encounter Details Date Type Department Care Team (Latest Contact Info) Description 01/01/2024 11:00 AM CDT Clinical Communication Virtual Review in [place], [place] [address] [place] [phone] Social History Tobacco Use Types Packs/Day Years [...] CDT Comprehensive Visit Department of Oncology in [place], [place] [address] [place] [phone] Lon Umanzor M.D. [address] [place] [phone] 01/15/2024 2:00 PM CDT Comprehensive Visit Division of Colon and Rectal Surgery in [place], [place] [address] [place] [phone] Viraj Styles M.B., B.Ch., M.Victorino. [address] [place] [phone] documented as of this encounter Visit Diagnoses Not on filedocumented in this encounter
== END 2024-01-09 08:45 | disposition home or self-care (01) ==
LOC: US 08:45
PROVIDERS: PCP Physician Assistant Medical; Visit Provider Obstetrics & Gynecology
DX: D27.1 Benign neoplasm of left ovary (principal); N83.8 Other noninflammatory disorders of ovary, fallopian tube and broad ligament
CPT/HCPCS: 76830; 76856

== ENCOUNTER 2024-04-08 09:55 | Outpatient (RCR) | payer BC, SELFPAY | END 2024-10-05 23:59 | disposition home or self-care (01) | LOC: CCIC 09:55 | PROVIDERS: PCP Physician Assistant Medical; Visit Provider Internal Medicine Hematology & Oncology | DX: C20 Malignant neoplasm of rectum (principal); I10 Essential (primary) hypertension; L90.0 Lichen sclerosus et atrophicus | CPT/HCPCS: 99202; 99204; 99205 ==